=== PATIENT | female | born 1985 | race Caucasian/White ===

== ENCOUNTER → 2017-02-27 | Outpatient (CLI) | payer OTHER ==
--- NOTE | 2017-02-27 08:10 | US ---
EXAMINATION TYPE: US abdomen limited DATE OF EXAM: 02/27/2017 COMPARISON: NONE CLINICAL HISTORY: R10.84 abdominal pain. EXAM MEASUREMENTS: Liver Length: 16.5 cm Gallbladder Wall: 0.3 cm CBD: 0.2 cm Right Kidney: 10.6 x 4.6 x 5.9 cm Pancreas: wnl as seen Liver: homogeneous Gallbladder: No stones seen, gb wall prominent Evidence for sonographic Ho's sign: no CBD: wnl Right Kidney: No hydronephrosis or masses seen Visualized portions of the pancreas are unremarkable. The liver is normal in size without biliary dilatation. The gallbladder is unremarkable. The gallbladder wall measures 3 mm. The distal common hepatic duct m easures 2 mm. There is no sonographic Ho's sign. Right kidney is normal. IMPRESSION: NORMAL RIGHT UPPER QUADRANT ULTRASOUND.
--- NOTE | 2017-02-27 10:10 | NM ---
EXAMINATION TYPE: NM hepatobiliary w EF DATE OF EXAM: 02/27/2017 COMPARISON: NONE HISTORY: Abdominal pain TECHNIQUE: After the intravenous administration of 5.5 mCi Tc 99m Mebrofenin hepatobiliary scintigrap hy is performed. Immediate images post injection. FINDINGS: There is satisfactory initial accumulation of tracer by the liver. The gallbladder is visualized wit hin 8 minutes. The small bowel activity is noted within 18 minutes. At one hour 8 ounces of oral en sure plus is given to mimic CCK and gallbladder ejection fraction is calculated at 43 %, in the joe l range. Therefore there is no scintigraphic evidence of cystic or common bile duct obstruction to s uggest acute cholecystitis or gallbladder dyskinesia. IMPRESSION: NORMAL NUCLEAR MEDICINE HEPATOBILIARY SCAN WITH EJECTION FRACTION CALCULATION.
== END | disposition home or self-care (01) ==
LOC: RADUSMAIN 07:02
PROVIDERS: ATTEND Surgery Plastic and Reconstructive Surgery
DX: R10.84 Generalized abdominal pain (principal)
CPT/HCPCS: 76705; 78226; A9537

== ENCOUNTER → 2017-05-18 | Outpatient (CLI) | payer OTHER ==
--- NOTE | 2017-05-18 14:04 | XR ---
EXAMINATION TYPE: XR thoracic spine complete DATE OF EXAM: 05/18/2017 CLINICAL HISTORY: Fall with mid back pain. TECHNIQUE: Frontal, lateral, and swimmer's view of thoracic spine are obtained. COMPARISON: None. FINDINGS: Thoracic spine show satisfactory alignment without evidence of acute fracture or dislocatio n. Vertebral body heights and disc space heights are preserved. Visualized ribs are unremarkable. Visualized ribs appear intact without displaced fracture. Visualized portions of the lungs are unrema rkable. Heart appears slightly prominent in size, which may be related to technique IMPRESSION: No acute fracture or dislocation is seen in the thoracic spine.
--- NOTE | 2017-05-18 14:05 | XR ---
EXAMINATION TYPE: XR lumbar spine 2 or 3V DATE OF EXAM: 05/18/2017 CLINICAL HISTORY: Fall and mid back pain. TECHNIQUE: Frontal and lateral images of the lumbar spine are obtained. COMPARISON: None FINDINGS: There are 5 lumbar type vertebral bodies identified. The lumbar spine shows satisfactory alignment without evidence of acute fracture or dislocation. Vertebral body heights and disk space he ights are within normal limits. No significant degenerative changes seen throughout the lumbar spine. The oblique images appear within normal limits. The overlying soft tissue appears unremarkable. IMPRESSION: No acute fracture or dislocation is seen in the lumbar spine. No significant degenerativ e change.
== END | disposition home or self-care (01) ==
LOC: RADXRMAIN 12:00
PROVIDERS: ATTEND Internal Medicine
DX: M54.5 Low back pain (principal); M54.9 Dorsalgia, unspecified
CPT/HCPCS: 72072; 72100

== ENCOUNTER → 2017-07-24 | Outpatient (CLI) | payer OTHER ==
[2017-07-24 14:55] VITALS: BP 119/66; PULSE 86; RESP 16; TEMP 98; BMI 31.3
[2017-07-24 17:26] LABS: HCT 43.4 % (34.0-46.0); MCH 28.6 pg (25.0-35.0); MCHC 32.2 g/dL (31.0-37.0); MCV 88.7 fL (80.0-100.0); Mean Platelet Volume 8.2; Platelet Count 331 k/uL (150-450); RBC 4.89 m/uL (3.80-5.40); RDW 13.8 % (11.5-15.5); WBC 10.2 k/uL (3.8-10.6)
[2017-07-24 17:56] LABS: ALT 40 U/L (9-52); AST 21 U/L (14-36); Albumin 4.4 g/dL (3.5-5.0); Alkaline Phosphatase 65 U/L (38-126); Anion Gap 11 mmol/L; Blood Urea Nitrogen 14 mg/dL (7-17); Calcium 9.8 mg/dL (8.4-10.2); Carbon Dioxide 24 mmol/L (22-30); Chloride 107 mmol/L (98-107); Cholesterol 135 mg/dL (<200); Glucose 90 mg/dL (74-99); HDL Cholesterol 38 mg/dL (40-60); LDL Cholesterol,Calculated 78 mg/dL (0-99); Potassium 4.5 mmol/L (3.5-5.1); Sodium 142 mmol/L (137-145); Total Bilirubin 0.2 mg/dL (0.2-1.3); Total Protein 6.8 g/dL (6.3-8.2); Triglycerides 95 mg/dL (<150)
[2017-07-25 00:53] LABS: Iron Saturation 11.24 (12.00-45.00)
[2017-07-25 01:43] LABS: Folate, Serum 12.8 ng/mL
[2017-07-25 02:00] LABS: Hemoglobin A1C 5.2 % (4.0-6.0)
[2017-07-27 15:59] LABS: Anabasine Urine <2.0 ng/mL (<2.0)
--- NOTE | 2017-09-16 16:34 | P.HPBAR ---
Bariatric H&P - History & Physicial H&P Date: 07/24/17 History & Physicial: Visit/CC: initial visit Patient initial contact: Initial weight: 85.417 kg Initial weight in pounds: 188.00 Height: 5 ft 5 in Initial BMI: 31.3 Last weight: Current weight: 85.417 kg Current weight in pounds: 188.00 Current BMI: 31.3 Hayden body weight (based on NIH guidelines): 56.699 kg Excess body weight loss: 0.0% The patient is a 32 year-old F who presents for Bariatric Assessment. DATE OF SERVICE: 07/24/2017 REASON FOR CONSULTATION: Initial bariatric evaluation. HISTORY OF PRESENT ILLNESS: The patient is a 32-year-old female who presents with long-standing obesity. Her highest weight is 225 pounds. She comes in today weighing 188 pounds. Her body mass index is down from 37.5 to 31.3. Her personal goal is to get down to 150 pounds. She has done Adipex including working at the gym for weight loss. She has a family history of obesity as her parents and grandparents are overweight. She has a family history of diabetes in her grandmother and mother as well as hypertension. She reports lower back pain including bilateral knee pain. She was reports swelling of the bilateral feet. She denies food ALLERGIES. No presonal history of Crohn's or ulcerative colitis. She has gastroesophageal reflux disease. No reports of stomach or esophageal cancer. No reports of blood clots in her family. She has strong family history of gallbladder disorder in her sister including mother. Separately she does report right upper quadrant including right lower quadrant abdominal pain. She has fatty food intolerance. She has a family history of Crohn's disease including ulcerative colitis. She also reports diarrhea. Separately, she complains of panniculitis of her abdominal apron. She's evaluating for the sleeve gastrectomy. At her height of 5 foot 5 inches her ideal body weight is 149 pounds. She is 40 pounds overweight. She has maintained 37 pound weight loss on her own. PAST MEDICAL HISTORY: 1. Obesity. 2. Body mass index of 38.4 down to 31.3. 3. Osteoarthritis of the knees. 4. Gastroesophageal reflux disease. PAST SURGICAL HISTORY: 1. Tonsillectomy. HOME MEDICATIONS: 1. Motrin. ALLERGIES: Denies. SOCIAL HISTORY: Active tobacco use. . FAMILY HISTORY: Has family history of ulcerative colitis disease or Crohn's disease. Family history of morbid obesity. No lupus in family. No reports of stomach or esophageal cancer. Family history of diabetes and hypertension. REVIEW OF ORGAN SYSTEMS: CONSTITUTIONAL: At her height of 5 foot 5 inches her ideal body weight is 149 pounds. She is 40 pounds overweight. She has maintained 37 pound weight loss on her own. Her highest weight is 225 pounds. She comes in today weighing 188 pounds. Her body mass index is down from 37.5 to 31.3. HEENT: Denies any active troubles with vision or hearing. No troubles with swallowing. ENDOCRINE: No diabetes. No hypothyroidism. CARDIOVASCULAR: No reports of palpitations or heart attacks or chest pain. RESPIRATORY: Has daytime somnolence. No asthma. GI: Denies any bright red blood per rectum. Does have gastroesophageal reflux disease as described above. Has diarrhea. MUSCULOSKELETAL: Has lower back pain and joint pain. Has osteoarthritis of the hips and knees. NEURO: No headaches. No seizure disorders. PSYCH: No depression or suicidal ideation. RHEUMATOLOGIC: No lupus. No rheumatoid arthritis. HEMATOLOGIC: Denies any abnormal bleeding or bruising. No personal history of DVTs. SKIN: No rash. No skin cancer. PHYSICAL EXAM: VITAL SIGNS: Height 5 foot 5 inches, weight 188 pounds. BMI 31.3 Vital Signs Temp 98 F 07/24/17 14:52 Pulse 86 07/24/17 14:52 Resp 16 07/24/17 14:52 BP 119/66 07/24/17 14:52 Pulse Ox GENERAL: Well-developed in no acute distress. HEENT: No scleral icterus. Extraocular movements grossly intact. Hears conversational speech. No nasal drainage. NECK: Supple without lymphadenopathy. CHEST: Nonlabored respirations with equal bilateral excursions. CARDIOVASCULAR: Regular rate and regular rhythm. Distal 2+ pulses. ABDOMEN: Obese, soft, nontender, nondistended. MUSCULOSKELETAL: No clubbing, cyanosis. Gross strength 5/5 distal lower extremities. No pre-tibial pitting edema. NEURO: No focal or lateralizing signs. Cranial nerves 2 through 12 grossly within normal limits. PSYCH: Appropriate affect. Alert and oriented to person, place and time. SKIN: Good skin turgor. Well perfused. ASSESSMENT: 1. Obesity due to excess calories. 2. Body mass index of 37.5 to 31.3. 3. Osteoarthritis of the knees. 4. Gastroesophageal reflux disease. 5. Gallbladder disorder. 6. Family history of gallbladder disorder. 7. Family history of obesity. 8. Family history of lupus and Crohn's disease. 9. Active tobacco abuse PLAN: 1. At present, the patient's body mass index is less than 35 without any moderate comorbidities. As a result, recommend dietitian evaluation for weight loss. 2. Surgical options including a band, gastric bypass, sleeve gastrectomy were described in detail including criteria for weight loss surgery when BMI is over 35 with comorbidities or body mass index over 40. Alternatives such as gastric balloon including duodenal switch were described. 3. The [place] bariatric surgical collaborative data and outcomes calculator were described with surgical options. 4. Dietary surveillance and counseling was reviewed, I have asked increased protein intake to at least 60 grams daily. 5. Recommend food journal. 6. Recommend bariatric metabolic panel for evaluation for macro including micro -nutrient deficiency. 7. For history of gallbladder disorder, recommend laparoscopic cholecystectomy. Thank you for this consultation. Laboratory Last Values WBC 10.2 k/uL (3.8-10.6) 07/24/17 16:20 RBC 4.89 m/uL (3.80-5.40) 07/24/17 16:20 Hgb 14.0 gm/dL (11.4-16.0) 07/24/17 16:20 Hct 43.4 % (34.0-46.0) 07/24/17 16:20 MCV 88.7 fL (80.0-100.0) 07/24/17 16:20 MCH 28.6 pg (25.0-35.0) 07/24/17 16:20 MCHC 32.2 g/dL (31.0-37.0) 07/24/17 16:20 RDW 13.8 % (11.5-15.5) 07/24/17 16:20 Plt Count 331 k/uL (150-450) 07/24/17 16:20 Sodium 142 mmol/L (137-145) 07/24/17 16:20 Potassium 4.5 mmol/L (3.5-5.1) 07/24/17 16:20 Chloride 107 mmol/L (98-107) 07/24/17 16:20 Carbon Dioxide 24 mmol/L (22-30) 07/24/17 16:20 Anion Gap 11 mmol/L 07/24/17 16:20 BUN 14 mg/dL (7-17) 07/24/17 16:20 Creatinine 0.70 mg/dL (0.52-1.04) 07/24/17 16:20 Est GFR (MDRD) Af Amer >60 (>60 ml/min/1.73 sqM) 07/24/17 16:20 Est GFR (MDRD) Non-Af >60 (>60 ml/min/1.73 sqM) 07/24/17 16:20 Glucose 90 mg/dL (74-99) 07/24/17 16:[address] Glu mg/dL 103 07/24/17 16:20 Hemoglobin A1c 5.2 % (4.0-6.0) 07/24/17 16:20 Calcium 9.8 mg/dL (8.4-10.2) 07/24/17 16:20 Iron 39 ug/dL (50-170) L 07/24/17 16:20 TIBC 347 ug/dL (228-460) 07/24/17 16:20 Iron Saturation 11.24 (12.00-45.00) L 07/24/17 16:20 Ferritin 30.8 ng/mL (10.0-291.0) 07/24/17 16:20 Total Bilirubin 0.2 mg/dL (0.2-1.3) 07/24/17 16:20 AST 21 U/L (14-36) 07/24/17 16:20 ALT 40 U/L (9-52) 07/24/17 16:20 Alkaline Phosphatase 65 U/L (38-126) 07/24/17 16:20 Total Protein 6.8 g/dL (6.3-8.2) 07/24/17 16:20 Albumin 4.4 g/dL (3.5-5.0) 07/24/17 16:20 Triglycerides 95 mg/dL (<150) 07/24/17 16:20 Cholesterol 135 mg/dL (<200) 07/24/17 16:20 LDL Cholesterol, Calc 78 mg/dL (0-99) 07/24/17 16:20 HDL Cholesterol 38 mg/dL (40-60) L 07/24/17 16:20 Vitamin B1 46 ug/L (38-122) 07/24/17 16:20 Vitamin B12 537.0 pg/mL (200.0-944.0) 07/24/17 16:20 Vitamin D 25-Hydroxy 29.0 ng/mL (30.0-100.0) L 07/24/17 16:20 Folate 12.8 ng/mL 07/24/17 16:20 TSH 0.904 mIU/L (0.465-4.680) 07/24/17 16:20 Urine Cotinine 1439.2 ng/mL (<5.0) H 07/24/17 16:20 Urine Nicotine 7.2 ng/mL (<2.0) H 07/24/17 16:20 Urine Anabasine <2.0 ng/mL (<2.0) 07/24/17 16:20 EKG EKG PERFORMED 07/24/17 16:20 Recommend multivitamin daily. Recommend iron supplement. Recommended tobacco cessation. Past Medical History Past Medical History: No Reported History History of Any Multi-Drug Resistant Organisms: None Reported Past Surgical History: No Surgical Hx Reported, Tonsillectomy Past Anesthesia/Blood Transfusion Reactions: No Reported Reaction Smoking Status: Current every day smoker Surgical - Exam Vital Signs Temp Pulse Resp BP 98 F 86 16 119/66 07/24/17 14:52 07/24/17 14:52 07/24/17 14:52 07/24/17 14:52 Results - Labs 07/24/17 16:20 07/24/17 16:20 Bariatric Checklist Checklist: Plan: Checklist: EGD: 1. Hiatal hernia: 2. H. Pylori: HgbA1c: Vitamin D: Smoking: Current every day smoker Primary care physician referral: Psychiatry clearance: Cardiology clearance: Sleep study: Diet journal: VTE risk score: VTE risk level: Rehab needs at discharge:
== END | disposition home or self-care (01) ==
LOC: BARWHC3 13:46
PROVIDERS: ATTEND Surgery Plastic and Reconstructive Surgery
DX: Z48.815 Encounter for surgical aftercare following surgery on the digestive system (principal); E66.9 Obesity, unspecified; M17.0 Bilateral primary osteoarthritis of knee; K21.9 Gastro-esophageal reflux disease without esophagitis; K82.9 Disease of gallbladder, unspecified; F17.200 Nicotine dependence, unspecified, uncomplicated; E88.81 Metabolic syndrome and other insulin resistance; D50.8 Other iron deficiency anemias; E44.0 Moderate protein-calorie malnutrition; E55.9 Vitamin D deficiency, unspecified; I11.9 Hypertensive heart disease without heart failure; G47.30 Sleep apnea, unspecified; Z68.31 Body mass index [BMI] 31.0-31.9, adult; Z79.1 Long term (current) use of non-steroidal anti-inflammatories (NSAID); Z90.89 Acquired absence of other organs
CPT/HCPCS: 84425; 80061; 80053; 82607; 82728; 82746; 83540; 83550; 84443; 85027; 82306; 83036; 93005; G0480; G0463; 80323; 99211

== ENCOUNTER 2017-08-30 21:13 | Emergency (ER) | payer OTHER ==
[2017-08-30 21:22] VITALS: RESP 20
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
--- NOTE | 2017-08-30 23:01 | XR ---
EXAMINATION TYPE: XR Hip Complete RT DATE OF EXAM: 08/30/2017 COMPARISON: NONE HISTORY: Hip pain TECHNIQUE: 2 views FINDINGS: I see no fracture nor dislocation. Proximal femur and hip joint appear normal. There is no evidence of a focal bony destructive process. Right sacroiliac joint appears normal. IMPRESSION: Normal right hip exam.
--- NOTE | 2017-08-30 23:30 | CT ---
EXAMINATION TYPE: CT brain wo con DATE OF EXAM: 08/30/2017 COMPARISON: 05/15/2016 HISTORY: head injury CT DLP: 994.30 mGycm. Automated Exposure Control for Dose Reduction was Utilized. TECHNIQUE: CT scan of the head is performed without contrast. FINDINGS: Ventricles and sulci appear normal. There is no mass effect nor midline shift. There is n o sign of intracranial hemorrhage. The calvarium is intact. CONCLUSION: Normal CT scan of the brain. No change. No sign of traumatic injury.
[2017-08-30 23:42] VITALS: BP 128/79; PULSE 78; TEMP 98.5
== END 2017-08-30 23:41 | disposition home or self-care (01) ==
LOC: EC 21:13
DX: S70.01XA Contusion of right hip, initial encounter (principal); S06.9X9A Unspecified intracranial injury with loss of consciousness of unspecified duration, initial encounter; F17.200 Nicotine dependence, unspecified, uncomplicated; V86.59XA Driver of other special all-terrain or other off-road motor vehicle injured in nontraffic accident, initial encounter
CPT/HCPCS: 70450; 73502; 99284

== ENCOUNTER 2019-05-14 09:59 | Emergency (ER) | payer OTHER ==
[2019-05-14 10:06] VITALS: BP 119/79; PULSE 86; RESP 20; TEMP 98.1
--- NOTE | 2019-05-14 10:43 | CT ---
EXAMINATION TYPE: CT brain wo con DATE OF EXAM: 05/14/2019 COMPARISON: 08/30/2017 HISTORY: Headache CT DLP: 1150.[address] of the brain was performed. The ventricles, basal cisterns and sulci overlying the cerebral convexities demonstrate a normal appe arance. There is no evidence for intracranial hemorrhage or sulcal effacement. No mass effects are seen. Osseous calvarium is intact. If symptoms persist consider MRI as clinically warranted. IMPRESSION: 1. No acute intracranial process is seen at this time.
[2019-05-14] MEDS ORDERED: KETOROLAC 30 MG/ML 1 ML VIAL IVP STA (10:49)
[2019-05-14] MEDS ORDERED: diphenhydrAMINE 50 MG/ML 1 ML VIAL IVP STA (10:49)
[2019-05-14] MEDS ORDERED: METOCLOPRAMIDE 5 MG/ML 2 ML VIAL IVP STA (10:49)
[2019-05-14] MEDS ORDERED: SODIUM CHLORIDE 0.9% 1,000 ML IV STA (10:49)
--- NOTE | 2019-05-14 11:04 | ED ---
General Adult HPI - General Chief complaint: Headache Stated complaint: Headache Time Seen by Provider: 05/14/19 10:07 Source: patient, RN notes reviewed, old records reviewed Mode of arrival: ambulatory Limitations: no limitations - History of Present Illness Initial comments: 34-year-old female patient past history significant for tubal ligation, cholecystectomy presents ED chief complaint of worsening migraine headaches approximately one year. Patient reports that over this time. She has had headaches which are behind her left, they come and go. Patient reports insidious onset of headache, reports nausea without emesis. Patient reports that most current headache has been waxing and waning/Saturday. Patient denies thunderclap onset, denies worst headache of life, denies loss of consciousness, states that she cannot be . Systemic: Pt denies fatigue, fever/chills, rash. Pt denies weakness, night sweats, weight loss. Neuro: Pt denies visual disturbances, syncope or pre-syncope. HEENT: Pt denies ocular discharge or irritation, otalgia, rhinorrhea, pharyngitis or notable lymphadenopathy. Cardiopulmonary: Pt denies chest pain, SOB, heart palpitations, dyspnea on exertion. Abdominal/GI: Pt denies abdominal pain, n/v/d. : Pt denies dysuria, burning w/ urination, frequency/urgency. Denies new onset urinary or bowel incontinence. MSK: Pt denies myalgia, loss of strength or function in extremities. Neuro: Pt denies new onset weakness, paresthesias. - Related Data Home Medications Medication Instructions Recorded Confirmed [id number] 1 tab PO Q4HR PRN 05/14/19 05/14/19 [Excedrin] Allergies Allergy/AdvReac Type Severity Reaction Status Date / Time No Known Allergies Allergy Verified 05/14/19 10:11 Review of Systems ROS Statement: Those systems with pertinent positive or pertinent negative responses have been documented in the HPI. ROS Other: All systems not noted in ROS Statement are negative. Past Medical History Past Medical History: No Reported History Additional Past Medical History / Comment(s): GALLBLADDER DISORDER History of Any Multi-Drug Resistant Organisms: None Reported Past Surgical History: Adenoidectomy, Cholecystectomy, Tonsillectomy, Tubal Ligation Additional Past Surgical History / Comment(s): D & C Past Anesthesia/Blood Transfusion Reactions: No Reported Reaction Past Psychological History: No Psychological Hx Reported Smoking Status: Current every day smoker Past Alcohol Use History: None Reported Past Drug Use History: None Reported - Past Family History Mother Family Medical History: No Reported History General Exam - General Exam Comments Initial Comments: Constitutional: NAD, AOX3, Pt has pleasant affect. HEENT: NC/AT, trachea midline, neck supple, no lymphadenopathy. Posterior phary nx non erythematous, without exudates. External ears appear normal, without discharge. Mucous membranes moist. Eyes PERRLA, EOM intact. There is no scleral icterus. No pallor noted. Cardiopulmonary: RRR, no murmurs, rubs or gallops, no JVD noted. Lungs CTAB in anterior and posterior mauricio. No peripheral edema. Abdominal exam: Abdomen soft and non-distended. Abdomen non-tender to palpation in all 4 quadrants. Bowel sounds active in LLQ. No hepatosplenomegaly. No ecchymosis Neuro: CN II-XII intact. No nuchal rigidity. No raccon eyes, no robles sign, no hemotympanum. No cervical spinal tenderness. MSK: No posterior calf tenderness bilaterally, homans sign negative bilaterally. Posterior tibialis and radial pulse +2 bilaterally. Sensation intact in upper and lower extremities. Full active ROM in upper and lower extremities, 5/5 stregnth. Limitations: no limitations Course Vital Signs 05/14/19 10:03 Temperature 98.1 F Pulse Rate 86 Respiratory 20 Rate Blood Pressure 119/79 O2 Sat by Pulse 99 Oximetry Medical Decision Making - Medical Decision Making 34-year-old female patient past history significant for tubal ligation, cholecystectomy presents ED chief complaint of worsening migraine headaches approximately one year. Patient reports that over this time. She has had headaches which are behind her left, they come and go. Patient reports insidious onset of headache, reports nausea without emesis. Patient reports that most current headache has been waxing and waning/Saturday. Patient denies thunderclap onset, denies worst headache of life, denies loss of consciousness, states that she cannot be . Pt VSS, stable afebrile. Physical exam displayed: CN II-XII intact. No nuchal rigidity. No raccon eyes, no robles sign, no hemotympanum. No cervical spinal tenderness. Chart review displayed negative CT brain didn't thousand and August 2017. Explained to patient risks of radiation to brain, patient was understanding. Patient reported that she would like to have another CT done as these headaches have been worsening and progressive. CT brain presents with acute pathology. Patient administered headache cocktail, improved after pharmacologic intervention. Patient will be discharged with neurology follow-up. Case discussed with Dr. Mendoza. Disposition Clinical Impression: Migraine headache Disposition: HOME SELF-CARE Condition: Stable Instructions (If sedation given, give patient instructions): Acute Headache (ED) Additional Instructions: Patient to adhere to previously discussed treatment plan and will take medication(s) as directed. Patient to follow up with PCP in 1-2 days. Patient to return to ED if symptoms do not improve. Follow-up with neurologist as recommended by PCP. return to ER if condition worsens. Is patient prescribed a controlled substance at d/c from ED?: No Referrals: Johnson Oquendo MD [Primary Care Provider] - 1-2 days
== END 2019-05-14 11:44 | disposition home or self-care (01) ==
LOC: EC 09:59
DX: G43.909 Migraine, unspecified, not intractable, without status migrainosus (principal); F17.200 Nicotine dependence, unspecified, uncomplicated; Z90.49 Acquired absence of other specified parts of digestive tract; Z98.51 Tubal ligation status
CPT/HCPCS: 70450; 99284; 96374; 96375 ×2; 96361; J1200; J2765; J1885

== ENCOUNTER 2020-07-01 10:58 | Emergency (ER) | payer OTHER ==
[2020-07-01] MEDS ORDERED: KETOROLAC 15 MG/ML 1 ML VIAL IVP STA (11:50)
--- NOTE | 2020-07-01 12:08 | ED ---
Abdominal Pain HPI - General Chief Complaint: Abdominal Pain Stated Complaint: post op/abd pain & bloating Time Seen by Provider: 07/01/20 11:04 Source: patient Mode of arrival: ambulatory Limitations: no limitations - History of Present Illness Initial Comments: Patient is a 35-year-old female presenting to the emergency Department with complaints of abdominal pain and bloating that has been increasing over the past month. Patient is 11 weeks postop from a tummy tuck and liposuction procedure performed at [facility] in [facility]. Patient states she has had complications ever since the procedure. She states shortly after her procedure she developed a wound infection, finished a course of antibiotics, a few weeks later the right side of her wound came apart revealing internal sutures. Patient states she finally healed from that and in the last week a spot on the left side of her incision has started opening as well. She states throughout this healing process she has felt very swollen and bloated. Patient states the last week she feels like the bloating is significantly worse than it has been. She is also having continued pain, is having a hard time working secondary to the pain and continues to have a hard time moving around. She states she still wears a compression clothing over it. She has not taken any recent antibiotics, she is currently on no medications. She's been taking ibuprofen for discomfort which sometimes helps, other times not. She denies any fever, but has had nightly chills. She denies any nausea, vomiting, diarrhea, urinary complaints. She states she is going through bouts of constipation because her appetite has been so low. Eyes being secondary to tubal ligation. She states her surgeon has basically given up on her stating it'll just take some more time to heal. She has no further complaints at this time. - Related Data Home Medications Medication Instructions Recorded Confirmed No Known Home Medications 07/01/20 07/01/20 Allergies Allergy/AdvReac Type Severity Reaction Status Date / Time No Known Allergies Allergy Verified 07/01/20 11:52 Review of Systems ROS Statement: Those systems with pertinent positive or pertinent negative responses have been documented in the HPI. ROS Other: All systems not noted in ROS Statement are negative. Past Medical History Past Medical History: No Reported History Additional Past Medical History / Comment(s): GALLBLADDER DISORDER History of Any Multi-Drug Resistant Organisms: None Reported Past Surgical History: Adenoidectomy, Cholecystectomy, Tonsillectomy, Tubal Ligation Additional Past Surgical History / Comment(s): D & C, Mike yuan Past Anesthesia/Blood Transfusion Reactions: No Reported Reaction Past Psychological History: No Psychological Hx Reported Smoking Status: Never smoker Past Alcohol Use History: None Reported Past Drug Use History: None Reported - Past Family History Mother Family Medical History: No Reported History General Exam - General Exam Comments Initial Comments: GENERAL: Patient is well-developed and well-nourished. Patient is nontoxic and in no acute distress. HEAD: Atraumatic, normocephalic. EYES: Pupils equal round and reactive to light, extraocular movements intact, sclera anicteric, conjunctiva are normal. Eyelids were unremarkable. ENT: TMs normal, nares patent, oropharynx clear without exudates. Moist mucous membranes. NECK: Normal range of motion, supple without lymphadenopathy or JVD. LUNGS: Unlabored respirations. Breath sounds clear to auscultation bilaterally and equal. No wheezes rales or rhonchi. HEART: Regular rate and rhythm without murmurs, rubs or gallops. ABDOMEN: Patient has a lower abdomen incision running from hip to hip that has been healing well, there is one open area near the left lower quadrant that is draining bloody fluid. Patient does seem distended, hard in the right upper quadrant, rest of abdomen feels softer. Patient is tender to palpation mostly i n the right upper quadrant and right side of the abdomen but does have generalized tenderness in the entire abdomen. Normoactive bowel sounds. No masses appreciated. : Deferred MUSCULOSKELETAL: Normal extremities with adequate strength and normal range of motion, no pitting or edema. No clubbing or cyanosis. NEUROLOGICAL: Patient is alert and oriented x 3. Motor and sensory are also intact. Cranial nerves II through XII grossly intact. Symmetrical smile. Normal speech, normal gait. PSYCH: Normal mood, normal affect. SKIN: Warm, Dry, normal turgor, no rashes. Limitations: no limitations Course Vital Signs 07/01/20 07/01/20 11:00 13:03 Temperature 98 F 98.0 F Pulse Rate 83 67 Respiratory 20 18 Rate Blood Pressure 119/77 124/76 O2 Sat by Pulse 99 99 Oximetry Medical Decision Making - Medical Decision Making Patient is a 35-year-old female here for abdominal pain, distention does been increasing over the past few weeks. She is currently 11 weeks postop from a tummy tack and liposuction procedure done in [facility]. She has had wound complications ever since the procedure. Her vital signs are stable. She does have increased pain in the right upper quadrant and right side of her abdomen but does have generalized abdominal tenderness everywhere. Patient's labs are unremarkable, urine is normal. Did do a CT of the abdomen and pelvis which only shows continuous and subcutaneous inflammatory straightening of the anterior abdomen consistent with history of recent tummy tuck, no evidence of focal fluid collection or abscess. No other acute findings. I discussed these findings with the patient. Patient should continue with compression of the abdomen, gentle massage. I did recommend following up with a general surgeon. She has had her gallbladder removed with Dr. Patrick, I will give her a referral to her. She is stable for discharge at this time. Return parameters were dis cussed with the patient she verbalized understanding. Case discussed with Dr. Perales. - Lab Data Result diagrams: 07/01/20 12:16 07/01/20 12:16 Lab Results 07/01/20 07/01/20 07/01/20 Range/Units 12:16 12:16 12:16 WBC 7.9 (3.8-10.6) k/uL RBC 4.45 (3.80-5.40) m/uL Hgb 13.3 (11.4-16.0) gm/dL Hct 39.9 (34.0-46.0) % MCV 89.6 (80.0-100.0) fL MCH 29.9 (25.0-35.0) pg MCHC 33.4 (31.0-37.0) g/dL RDW 12.6 (11.5-15.5) % Plt Count 316 (150-450) k/uL Neutrophils % 62 % Lymphocytes % 29 % Monocytes % 4 % Eosinophils % 2 % Basophils % 1 % Neutrophils # 4.9 (1.3-7.7) k/uL Lymphocytes # 2.3 (1.0-4.8) k/uL Monocytes # 0.4 (0-1.0) k/uL Eosinophils # 0.1 (0-0.7) k/uL Basophils # 0.1 (0-0.2) k/uL Sodium 138 (137-145) mmol/L Potassium 4.2 (3.5-5.1) mmol/L Chloride 105 (98-107) mmol/L Carbon Dioxide 27 (22-30) mmol/L Anion Gap 6 mmol/L BUN 19 H (7-17) mg/dL Creatinine 0.66 (0.52-1.04) mg/dL Est GFR (CKD-EPI)AfAm >90 (>60 ml/min/1.73 sqM) Est GFR (CKD-EPI)NonAf >90 (>60 ml/min/1.73 sqM) Glucose 97 (74-99) mg/dL Plasma Lactic Acid Cristino (0.7-2.0) mmol/L Calcium 9.0 (8.4-10.2) mg/dL Total Bilirubin 0.5 (0.2-1.3) mg/dL AST 21 (14-36) U/L ALT 15 (4-34) U/L Alkaline Phosphatase 61 (38-126) U/L Total Protein 6.6 (6.3-8.2) g/dL Albumin 4.0 (3.5-5.0) g/dL Amylase 47 (30-110) U/L Lipase 57 (23-300) U/L Urine Color Yellow Urine Appearance Cloudy H (Clear) Urine pH 6.5 (5.0-8.0) Ur Specific [place] 1.021 (1.001-1.035) Urine Protein Negative (Negative) Urine Glucose (UA) Negative (Negative) Urine Ketones Negative (Negative) Urine Blood Negative (Negative) Urine Nitrite Negative (Negative) Urine Bilirubin Negative (Negative) Urine Urobilinogen <2.0 (<2.0) mg/dL Ur Leukocyte Esterase Negative (Negative) Urine RBC 4 (0-5) /hpf Urine WBC 2 (0-5) /hpf Ur Squamous Epith Cells 6 H (0-4) /hpf Urine Mucus Rare H (None) /hpf 30/20 Range/Units 12:16 WBC (3.8-10.6) k/uL RBC (3.80-5.40) m/uL Hgb (11.4-16.0) gm/dL Hct (34.0-46.0) % MCV (80.0-100.0) fL MCH (25.0-35.0) pg MCHC (31.0-37.0) g/dL RDW (11.5-15.5) % Plt Count (150-450) k/uL Neutrophils % % Lymphocytes % % Monocytes % % Eosinophils % % Basophils % % Neutrophils # (1.3-7.7) k/uL Lymphocytes # (1.0-4.8) k/uL Monocytes # (0-1.0) k/uL Eosinophils # (0-0.7) k/uL Basophils # (0-0.2) k/uL Sodium (137-145) mmol/L Potassium (3.5-5.1) mmol/L Chloride (98-107) mmol/L Carbon Dioxide (22-30) mmol/L Anion Gap mmol/L BUN (7-17) mg/dL Creatinine (0.52-1.04) mg/dL Est GFR (CKD-EPI)AfAm (>60 ml/min/1.73 sqM) Est GFR (CKD-EPI)NonAf (>60 ml/min/1.73 sqM) Glucose (74-99) mg/dL Plasma Lactic Acid Cristino 0.9 (0.7-2.0) mmol/L Calcium (8.4-10.2) mg/dL Total Bilirubin (0.2-1.3) mg/dL AST (14-36) U/L ALT (4-34) U/L Alkaline Phosphatase (38-126) U/L Total Protein (6.3-8.2) g/dL Albumin (3.5-5.0) g/dL Amylase (30-110) U/L Lipase (23-300) U/L Urine Color Urine Appearance (Clear) Urine pH (5.0-8.0) Ur Specific [place] (1.001-1.035) Urine Protein (Negative) Urine Glucose (UA) (Negative) Urine Ketones (Negative) Urine Blood (Negative) Urine Nitrite (Negative) Urine Bilirubin (Negative) Urine Urobilinogen (<2.0) mg/dL Ur Leukocyte Esterase (Negative) Urine RBC (0-5) /hpf Urine WBC (0-5) /hpf Ur Squamous Epith Cells (0-4) /hpf Urine Mucus (None) /hpf Disposition Clinical Impression: Abdominal pain Disposition: HOME SELF-CARE Condition: Stable Instructions (If sedation given, give patient instructions): Abdominal Pain (ED) Additional Instructions: Please return to the Emergency Department if symptoms worsen or any other concerns. Follow-up with Gen. surgery as discussed. May continue with ibuprofen for discomfort, gentle massage, compression for the swelling. Is patient prescribed a controlled substance at d/c from ED?: No Referrals: Johnson Oquendo MD [Primary Care Provider] - 1-2 days Geeta Patrick MD [STAFF PHYSICIAN] - 1-2 days
[2020-07-01 12:29] LABS: Basophils # (A) 0.1 k/uL (0-0.2); Basophils % (A) 1 %; Eosinophils # (A) 0.1 k/uL (0-0.7); Eosinophils % (A) 2 %; HCT 39.9 % (34.0-46.0); HGB 13.3 gm/dL (11.4-16.0); Lymphocytes # (A) 2.3 k/uL (1.0-4.8); Lymphocytes % (A) 29 %; MCH 29.9 pg (25.0-35.0); MCHC 33.4 g/dL (31.0-37.0); MCV 89.6 fL (80.0-100.0); Mean Platelet Volume 7.4; Monocytes # (A) 0.4 k/uL (0-1.0); Monocytes % (A) 4 %; Neutrophils # (A) 4.9 k/uL (1.3-7.7); Neutrophils % (A) 62 %; Platelet Count 316 k/uL (150-450); RBC 4.45 m/uL (3.80-5.40); RDW 12.6 % (11.5-15.5); WBC 7.9 k/uL (3.8-10.6)
[2020-07-01 12:35] LABS: Appearance,Urine Cloudy (Clear); Bilirubin,Urine Negative (Negative); Blood,Urine Negative (Negative); Color,Urine Yellow; Glucose,Urine (UA) Negative (Negative); Ketones,Urine Negative (Negative); Leukocyte Esterase,Urine Negative (Negative); Mucus,Urine Rare /hpf; Nitrite,Urine Negative (Negative); PH, Urine 6.5 (5.0-8.0); Protein,Urine Negative (Negative); RBC,Urine 4 /hpf (0-5); Specific Gravity,Urine 1.021 (1.001-1.035); Squamous Epithelial Cell,Urine 6 /hpf (0-4); Urobilinogen,Urine <2.0 mg/dL (<2.0); WBC,Urine 2 /hpf (0-5)
[2020-07-01 12:40] LABS: ALT 15 U/L (4-34); AST 21 U/L (14-36); African American GFR (CKD) >90 (>60 ml/min/1.73 sqM); Alkaline Phosphatase 61 U/L (38-126); Amylase 47 U/L (30-110); Anion Gap 6 mmol/L; Blood Urea Nitrogen 19 mg/dL (7-17); Carbon Dioxide 27 mmol/L (22-30); Chloride 105 mmol/L (98-107); Glucose 97 mg/dL (74-99); Non-African American GFR(CKD) >90 (>60 ml/min/1.73 sqM); Potassium 4.2 mmol/L (3.5-5.1); Sodium 138 mmol/L (137-145); Total Bilirubin 0.5 mg/dL (0.2-1.3); Total Protein 6.6 g/dL (6.3-8.2)
--- NOTE | 2020-07-01 13:04 | CT ---
EXAMINATION TYPE: CT abdomen pelvis w con DATE OF EXAM: 07/01/2020 COMPARISON: Limited abdominal ultrasound 02/19/2017 HISTORY: Post Op tummy tuck 11 weeks. Generalized pain with swelling. CT DLP: 1132.9 mGycm Automated exposure control for dose reduction was used. TECHNIQUE: Helical acquisition of images was performed from the lung bases through the pelvis. CONTRAST: Performed without Oral Contrast and with IV Contrast, patient injected with 100 mL of Isovue 300. FINDINGS: LUNG BASES: Normal. LIVER: Too small to characterize hypodense lesion of the left lobe (201:17). BILIARY SYSTEM: Status post cholecystectomy. No intrahepatic or extrahepatic biliary ductal dilatatio n. PANCREAS: Normal. SPLEEN: Normal. ADRENALS: Normal. KIDNEYS: Normal. BOWEL: No obstruction or thickening. Normal appendix. PERITONEUM: No pneumoperitoneum. No free fluid. LYMPH NODES: No lymphadenopathy. PELVIS: Normal. VASCULATURE: No abdominal aortic aneurysm. MUSCULOSKELETAL: There is a transverse lower abdominal cutaneous scar, with superficial subcutaneous inflammatory stranding seen throughout the anterior abdomen. There is no evidence of focal fluid col lection, subcutaneous emphysema. IMPRESSION: 1. Cutaneous and subcutaneous inflammatory stranding of the anterior abdomen consistent with history of recent tummy tuck. No evidence of focal fluid collection or abscess. 2. No acute abdominopelvic process.
[2020-07-01 13:31] VITALS: BP 124/76; PULSE 67; RESP 18; TEMP 98
== END 2020-07-01 13:40 | disposition home or self-care (01) ==
LOC: EC 10:58
DX: R10.11 Right upper quadrant pain (principal); R10.817 Generalized abdominal tenderness; R14.0 Abdominal distension (gaseous); L08.9 Local infection of the skin and subcutaneous tissue, unspecified; Z98.51 Tubal ligation status; Z90.49 Acquired absence of other specified parts of digestive tract; Z98.890 Other specified postprocedural states
CPT/HCPCS: 36415; 80053; 82150; 83605; 83690; 85025; 81001; 74177; 99284; 96374; J1885; Q9967

== ENCOUNTER → 2020-07-01 | Outpatient (CLI) | payer OTHER ==
[2020-07-01 11:11] LABS: Basophils % (A) 1 %; Eosinophils # (A) 0.1 k/uL (0-0.7); Eosinophils % (A) 1 %; HCT 41.5 % (34.0-46.0); HGB 13.1 gm/dL (11.4-16.0); Lymphocytes # (A) 2.2 k/uL (1.0-4.8); Lymphocytes % (A) 35 %; MCH 28.6 pg (25.0-35.0); MCHC 31.6 g/dL (31.0-37.0); MCV 90.7 fL (80.0-100.0); Mean Platelet Volume 7.5; Monocytes # (A) 0.2 k/uL (0-1.0); Monocytes % (A) 3 %; Neutrophils # (A) 3.8 k/uL (1.3-7.7); Neutrophils % (A) 59 %; Platelet Count 308 k/uL (150-450); RBC 4.57 m/uL (3.80-5.40); WBC 6.4 k/uL (3.8-10.6)
[2020-07-01 15:12] LABS: % Iron Saturation 23.47 (12.00-45.00); African American GFR (CKD) 131.9 (60.0-200.0); Albumin 4.4 g/dL (3.80-4.90); Albumin/Globulin Ratio 2.32 (1.60-3.17); Anion Gap 7.7 mmol/L (4.00-12.00); BUN/Creat Ratio 27.14 Ratio (12.00-20.00); Calcium 9.1 mg/dL (8.7-10.3); Carbon Dioxide 26.3 mmol/L (21.6-31.8); Globulin 1.9 g/dL (1.6-3.3); Non-African American GFR(CKD) 113.8 (60.0-200.0); Potassium 4.2 mmol/L (3.5-5.5); Total Bilirubin 0.5 mg/dL (0.3-1.2); Total Protein 6.3 g/dL (6.2-8.2)
[2020-07-01 15:22] LABS: Folate, Serum 15.8 ng/mL
== END | disposition home or self-care (01) ==
LOC: LABWHC1 10:32
PROVIDERS: ATTEND Surgery
DX: K90.9 Intestinal malabsorption, unspecified (principal); E56.9 Vitamin deficiency, unspecified
CPT/HCPCS: 36415; 80053; 82306; 82607; 82746; 83540; 83550; 84466; 85025

== ENCOUNTER 2020-10-12 11:06 | Inpatient (IN) | payer OTHER ==
[2020-10-12] MEDS ORDERED: HYDROcodone/APAP 5-325MG 1 EACH TAB PO STA (11:25)
[2020-10-12] MEDS ORDERED: PIPERACILLIN-TAZOBACTAM 3.375 GM in SODIUM CHLORIDE 0.9% 100 ML IVPB STA (11:30)
--- NOTE | 2020-10-12 11:33 | ED ---
Abdominal Pain HPI - General Source: patient Mode of arrival: ambulatory Limitations: no limitations <Tamia Francis - Last Filed: 10/12/20 14:50> <Josephine Gallegos - Last Filed: 10/17/20 22:17> - General Chief Complaint: Abdominal Pain Stated Complaint: post op-possible infection Time Seen by Provider: 10/12/20 11:14 - History of Present Illness Initial Comments: 35-year-old feel presented for chief complaint of lower abdominal pain redness status post a tummy tuck. Patient states she a tummy tuck at [facility] performed by Dr. Bennett. She states that this is her second procedure at there were complications with the first. pt states that since the surgery she has had lower abdominal p ain. she states the for the past nikolay days she has felt a bump and has new redness/warmth to touch just below the surgical incision site. patient denies fevers, chills, general malaise. Patient denies additional complaints. Denies urinary symptoms, upper abdominal pain, chest pain, dyspnea or leg swelling. patient appears well nontoxic on arrival. no distress and afebrile. (Tamia Francis) - Related Data Previous Rx's Medication Instructions Recorded Acetaminophen Tab [Tylenol Tab] 1,000 mg PO Q6HR PRN #30 tablet 10/17/20 Ciprofloxacin HCl [Cipro] 750 mg PO Q12H 10 Days #20 tab 10/17/20 Ibuprofen [Motrin] 600 mg PO Q8HR PRN #30 tab 10/17/20 Allergies Allergy/AdvReac Type Severity Reaction Status Date / Time No Known Allergies Allergy Verified 10/12/20 12:27 Review of Systems ROS Other: All systems not noted in ROS Statement are negative. <Tamia Francis - Last Filed: 10/12/20 14:50> ROS Other: All systems not noted in ROS Statement are negative. <Josephine Gallegos - Last Filed: 10/17/20 22:17> ROS Statement: Those systems with pertinent positive or pertinent negative responses have been documented in the HPI. Past Medical History Past Medical History: No Reported History Additional Past Medical History / Comment(s): GALLBLADDER DISORDER History of Any Multi-Drug Resistant Organisms: None Reported Past Surgical History: Adenoidectomy, Cholecystectomy, Tonsillectomy, Tubal Ligation Additional Past Surgical History / Comment(s): D & C, Mike yuan Past Anesthesia/Blood Transfusion Reactions: No Reported Reaction Past Psychological History: No Psychological Hx Reported Smoking Status: Never smoker Past Alcohol Use History: None Reported Past Drug Use History: None Reported - Past Family History Mother Family Medical History: No Reported History <Tamia Francis - Last Filed: 10/12/20 14:50> General Exam Limitations: no limitations <Tamia Francis - Last Filed: 10/12/20 14:50> - General Exam Comments Initial Comments: General: The patient is awake and alert, in no distress Eye: Pupils are equal, round and reactive to light, extra-ocular movements are intact. No nystagmus. There is normal conjunctiva bilaterally. No signs of icterus. Ears, nose, mouth and throat: There are moist mucous membranes and no oral lesions. Neck: The neck is supple, there is no tenderness or JVD. Cardiovascular: There is a regular rate and rhythm. No murmur, rub or gallop is appreciated. Respiratory: Lungs are clear to auscultation, respirations are non-labored, breath sounds are equal. No wheezes, stridor, rales, or rhonchi. Gastrointestinal: Soft, non-distended, palpable mass just below the surgical incision of the lower abdomen, midline. redness near surgical incision. abdomen without masses or organomegaly noted. There is no rebound or guarding present. Musculoskeletal: Normal ROM, no tenderness. Strength 5/5. Sensation intact. Radial and DP pulses equal bilaterally 2+. Neurological: A&O x 3. CN II-XII intact grossly, There are no obvious motor or sensory deficits. Coordination appears grossly intact. Speech is normal. Skin: Skin is warm and dry and no rashes or lesions are noted. Psychiatric: Cooperative, appropriate mood & affect, normal judgment. (Tamia Francis) Course Vital Signs 10/12/20 10/12/20 11:07 13:05 Temperature 98.2 F Pulse Rate 95 86 Respiratory 16 16 Rate Blood Pressure 132/85 114/67 O2 Sat by Pulse 98 99 Oximetry Medical Decision Making - Lab Data Result diagrams: 10/12/20 11:33 10/12/20 11:33 <Tamia Francis - Last Filed: 10/12/20 14:50> - Lab Data Result diagrams: 10/17/20 05:16 10/17/20 05:16 <Josephine Gallegos - Last Filed: 10/17/20 22:17> - Medical Decision Making leukocytosis no fevers skin examination concerning for cellulitis with possible abscess. CT revealed a large abscess within the adipose tissues. Patient refuses to go to her original surgeon stating she is displeased with the service s so far. Patient placed on IV antibiotics. Admitted to medicine with Gen. surgery consultation. Patient is agreeable to this care plan and admission as is attending Dr. Gallegos (Tamia Francis) I was available for consultation in the emergency department. The history and physical exam were done by the midlevel provider. I was consulted for this patients care. I reviewed the case with the midlevel provider and based on their presentation of the patient, I agree with the assessment, medical decision making and plan of care as documented. Chart was dictated using [employer] dictation software. Attempts were made to correct any dictation errors however some typographical errors may persist. Patient was seen during a national state of emergency due to the Covid-19 pa ndemic. (Josephine Gallegos) - Lab Data Lab Results 10/12/20 10/12/20 10/12/20 Range/Units 11:33 11:33 11:33 WBC 12.4 H (3.8-10.6) k/uL RBC 4.67 (3.80-5.40) m/uL Hgb 13.4 (11.4-16.0) gm/dL Hct 39.6 (34.0-46.0) % MCV 85.0 (80.0-100.0) fL MCH 28.8 (25.0-35.0) pg MCHC 33.9 (31.0-37.0) g/dL RDW 12.8 (11.5-15.5) % Plt Count 316 (150-450) k/uL MPV 7.5 Neutrophils % 70 % Lymphocytes % 23 % Monocytes % 4 % Eosinophils % 1 % Basophils % 0 % Neutrophils # 8.7 H (1.3-7.7) k/uL Lymphocytes # 2.9 (1.0-4.8) k/uL Monocytes # 0.5 (0-1.0) k/uL Eosinophils # 0.2 (0-0.7) k/uL Basophils # 0.1 (0-0.2) k/uL Sodium 138 (137-145) mmol/L Potassium 4.1 (3.5-5.1) mmol/L Chloride 102 (98-107) mmol/L Carbon Dioxide 26 (22-30) mmol/L Anion Gap 10 mmol/L BUN 11 (7-17) mg/dL Creatinine 0.57 (0.52-1.04) mg/dL Est GFR (CKD-EPI)AfAm >90 (>60 ml/min/1.73 sqM) Est GFR (CKD-EPI)NonAf >90 (>60 ml/min/1.73 sqM) Glucose 121 H (74-99) mg/dL Plasma Lactic Acid Cristino 0.9 (0.7-2.0) mmol/L Calcium 9.1 (8.4-10.2) mg/dL Total Bilirubin 0.7 (0.2-1.3) mg/dL AST 27 (14-36) U/L ALT 27 (4-34) U/L Alkaline Phosphatase 72 (38-126) U/L Total Protein 7.3 (6.3-8.2) g/dL Albumin 4.2 (3.5-5.0) g/dL Urine Color Urine Appearance (Clear) Urine pH (5.0-8.0) Ur Specific [place] (1.001-1.035) Urine Protein (Negative) Urine Glucose (UA) (Negative) Urine Ketones (Negative) Urine Blood (Negative) Urine Nitrite (Negative) Urine Bilirubin (Negative) Urine Urobilinogen (<2.0) mg/dL Ur Leukocyte Esterase (Negative) Urine RBC (0-5) /hpf Urine WBC (0-5) /hpf Ur Squamous Epith Cells (0-4) /hpf Urine Bacteria (None) /hpf Urine Mucus (None) /hpf Urine HCG, Qual (Not Detectd) 10/12/20 10/12/20 10/13/20 Range/Units 11:33 11:33 06:19 WBC 7.0 (3.8-10.6) k/uL RBC 3.97 (3.80-5.40) m/uL Hgb 11.7 (11.4-16.0) gm/dL Hct 34.5 (34.0-46.0) % MCV 86.9 (80.0-100.0) fL MCH 29.4 (25.0-35.0) pg MCHC 33.8 (31.0-37.0) g/dL RDW 13.0 (11.5-15.5) % Plt Count 278 (150-450) k/uL MPV 7.6 Neutrophils % 56 % Lymphocytes % 33 % Monocytes % 6 % Eosinophils % 3 % Basophils % 1 % Neutrophils # 4.0 (1.3-7.7) k/uL Lymphocytes # 2.3 (1.0-4.8) k/uL Monocytes # 0.4 (0-1.0) k/uL Eosinophils # 0.2 (0-0.7) k/uL Basophils # 0.0 (0-0.2) k/uL Sodium (137-145) mmol/L Potassium (3.5-5.1) mmol/L Chloride (98-107) mmol/L Carbon Dioxide (22-30) mmol/L Anion Gap mmol/L BUN (7-17) mg/dL Creatinine (0.52-1.04) mg/dL Est GFR (CKD-EPI)AfAm (>60 ml/min/1.73 sqM) Est GFR (CKD-EPI)NonAf (>60 ml/min/1.73 sqM) Glucose (74-99) mg/dL Plasma Lactic Acid Cristino (0.7-2.0) mmol/L Calcium (8.4-10.2) mg/dL Total Bilirubin (0.2-1.3) mg/dL AST (14-36) U/L ALT (4-34) U/L Alkaline Phosphatase (38-126) U/L Total Protein (6.3-8.2) g/dL Albumin (3.5-5.0) g/dL Urine Color Yellow Urine Appearance Cloudy H (Clear) Urine pH 5.5 (5.0-8.0) Ur Specific [place] 1.010 (1.001-1.035) Urine Protein Trace H (Negative) Urine Glucose (UA) Negative (Negative) Urine Ketones Negative (Negative) Urine Blood Large H (Negative) Urine Nitrite Negative (Negative) Urine Bilirubin Negative (Negative) Urine Urobilinogen <2.0 (<2.0) mg/dL Ur Leukocyte Esterase Trace H (Negative) Urine RBC 35 H (0-5) /hpf Urine WBC 5 (0-5) /hpf Ur Squamous Epith Cells 2 (0-4) /hpf Urine Bacteria Rare H (None) /hpf Urine Mucus Rare H (None) /hpf Urine HCG, Qual Not Detected (Not Detectd) 10/13/20 Range/Units 06:19 WBC (3.8-10.6) k/uL RBC (3.80-5.40) m/uL Hgb (11.4-16.0) gm/dL Hct (34.0-46.0) % MCV (80.0-100.0) fL MCH (25.0-35.0) pg MCHC (31.0-37.0) g/dL RDW (11.5-15.5) % Plt Count (150-450) k/uL MPV Neutrophils % % Lymphocytes % % Monocytes % % Eosinophils % % Basophils % % Neutrophils # (1.3-7.7) k/uL Lymphocytes # (1.0-4.8) k/uL Monocytes # (0-1.0) k/uL Eosinophils # (0-0.7) k/uL Basophils # (0-0.2) k/uL Sodium 135 L (137-145) mmol/L Potassium 4.4 (3.5-5.1) mmol/L Chloride 106 (98-107) mmol/L Carbon Dioxide 25 (22-30) mmol/L Anion Gap 4 mmol/L BUN 15 (7-17) mg/dL Creatinine 0.55 (0.52-1.04) mg/dL Est GFR (CKD-EPI)AfAm >90 (>60 ml/min/1.73 sqM) Est GFR (CKD-EPI)NonAf >90 (>60 ml/min/1.73 sqM) Glucose 100 H (74-99) mg/dL Plasma Lactic Acid Cristino (0.7-2.0) mmol/L Calcium 8.1 L (8.4-10.2) mg/dL Total Bilirubin (0.2-1.3) mg/dL AST (14-36) U/L ALT (4-34) U/L Alkaline Phosphatase (38-126) U/L Total Protein (6.3-8.2) g/dL Albumin (3.5-5.0) g/dL Urine Color Urine Appearance (Clear) Urine pH (5.0-8.0) Ur Specific [place] (1.001-1.035) Urine Protein (Negative) Urine Glucose (UA) (Negative) Urine Ketones (Negative) Urine Blood (Negative) Urine Nitrite (Negative) Urine Bilirubin (Negative) Urine Urobilinogen (<2.0) mg/dL Ur Leukocyte Esterase (Negative) Urine RBC (0-5) /hpf Urine WBC (0-5) /hpf Ur Squamous Epith Cells (0-4) /hpf Urine Bacteria (None) /hpf Urine Mucus (None) /hpf Urine HCG, Qual (Not Detectd) Disposition Is patient prescribed a controlled substance at d/c from ED?: No Time of Disposition: 14:01 Decision to Admit Reason: Admit from EC Decision Date: 10/12/20 Decision Time: 14:02 <Tamia Francis - Last Filed: 10/12/20 14:50> <Josephine Gallegos - Last Filed: 10/17/20 22:17> Clinical Impression: Leukocytosis, Abdominal wall abscess, Post-operative infection Disposition: ADMITTED IP TO THIS HOSP Condition: Stable
[2020-10-12 11:47] LABS: Basophils # (A) 0.1 k/uL (0-0.2); Basophils % (A) 0 %; Eosinophils # (A) 0.2 k/uL (0-0.7); Eosinophils % (A) 1 %; HCT 39.6 % (34.0-46.0); HGB 13.4 gm/dL (11.4-16.0); Lymphocytes # (A) 2.9 k/uL (1.0-4.8); Lymphocytes % (A) 23 %; MCH 28.8 pg (25.0-35.0); MCHC 33.9 g/dL (31.0-37.0); Mean Platelet Volume 7.5; Monocytes # (A) 0.5 k/uL (0-1.0); Monocytes % (A) 4 %; Neutrophils # (A) 8.7 k/uL (1.3-7.7); Neutrophils % (A) 70 %; Platelet Count 316 k/uL (150-450); RBC 4.67 m/uL (3.80-5.40); RDW 12.8 % (11.5-15.5); WBC 12.4 k/uL (3.8-10.6)
[2020-10-12 11:56] LABS: Appearance,Urine Cloudy (Clear); Bacteria,Urine Rare /hpf; Bilirubin,Urine Negative (Negative); Blood,Urine Large (Negative); Color,Urine Yellow; Glucose,Urine (UA) Negative (Negative); Ketones,Urine Negative (Negative); Leukocyte Esterase,Urine Trace (Negative); Mucus,Urine Rare /hpf; Nitrite,Urine Negative (Negative); PH, Urine 5.5 (5.0-8.0); Protein,Urine Trace (Negative); RBC,Urine 35 /hpf (0-5); Squamous Epithelial Cell,Urine 2 /hpf (0-4); Urobilinogen,Urine <2.0 mg/dL (<2.0); WBC,Urine 5 /hpf (0-5)
[2020-10-12 12:57] LABS: ALT 27 U/L (4-34); AST 27 U/L (14-36); African American GFR (CKD) >90 (>60 ml/min/1.73 sqM); Albumin 4.2 g/dL (3.5-5.0); Alkaline Phosphatase 72 U/L (38-126); Anion Gap 10 mmol/L; Blood Urea Nitrogen 11 mg/dL (7-17); Calcium 9.1 mg/dL (8.4-10.2); Carbon Dioxide 26 mmol/L (22-30); Chloride 102 mmol/L (98-107); Glucose 121 mg/dL (74-99); Non-African American GFR(CKD) >90 (>60 ml/min/1.73 sqM); Potassium 4.1 mmol/L (3.5-5.1); Sodium 138 mmol/L (137-145); Total Bilirubin 0.7 mg/dL (0.2-1.3); Total Protein 7.3 g/dL (6.3-8.2)
--- NOTE | 2020-10-12 13:25 | CT ---
EXAMINATION TYPE: CT abdomen pelvis w con DATE OF EXAM: 10/12/2020 COMPARISON: 07/01/2020 HISTORY: 35-year-old female with abdominal pain and swelling TECHNIQUE: Contiguous axial scanning of the abdomen and pelvis following administration of 100 ml Iso dylan 300 IV contrast. Delayed images through the kidneys and coronal/sagittal reconstructions perform ed. CT DLP: 1135.3 mGycm Automated exposure control for dose reduction was used. FINDINGS: Heart normal size without pericardial effusion. Some minimal strandy atelectasis in the lung bases. N o pleural effusion. Liver mildly enlarged at 19.2 cm. Portal venous system is patent. No biliary ductal dilatation. Gallbladder likely surgically absent. Adrenal glands, kidneys, spleen, and pancreas appear within normal limits. No dilated small bowel, free fluid, or free air. Stable scattered nonenlarged mesenteric lymph nodes. Normal appendix. Scattered minimal to mild stool. No pericolonic inflammatory change. Redemonstrated post interval change along the anterior abdominal wall relating to abdominal plasty. T here is now a inflamed fluid collection centered within the subcutaneous adipose layer of the infraum bilical midline measuring 11.3 cm wide by 2.8 cm thick by 9.3 cm craniocaudal. Surrounding fat strand ing and inflammation. Some reactive upper inguinal chain lymph nodes on both sides measuring up to 1.5 cm. Bladder not distended. Numerous pelvic fluid was. Uterus retroverted. Bladder partially collapsed. Gomez th ovaries are visualized. No abnormal fluid collection the pelvis. Bones: Mild marginal spurring at the right hip. IMPRESSION: 1. POSTSURGICAL CHANGE OF PRIOR ABDOMINOPLASTY BUT NOW WITH AN INFLAMED 11.3 X 9.3 X 2.8 CM FLUID COL LECTION WITHIN THE SUBCUTANEOUS ADIPOSE OF THE INFRAUMBILICAL MIDLINE. CORRELATE FOR ABSCESS WITH AFTAB ROUNDING CELLULITIS. 2. SOME REACTIVE BORDERLINE SIZED UPPER INGUINAL CHAIN LYMPH NODES MEASURING UP TO 1.5 CM. 3. MILD HEPATOMEGALY AT 19.2 CM.
[2020-10-12] MEDS ORDERED: NALOXONE 0.4 MG/ML 1 ML VIAL IV PRN (13:59)
[2020-10-12] MEDS: SODIUM CHLORIDE 0.9% 1,000 ML IV SCH (14:15)
[2020-10-12] MEDS ORDERED: ONDANSETRON 4 MG/2 ML VIAL IVP PRN (16:13)
[2020-10-12] MEDS ORDERED: ACETAMINOPHEN TAB 325 MG TAB PO PRN (16:13)
[2020-10-12] MEDS: HYDROcodone/APAP 5-325MG 1 EACH TAB PO PRN ×2 (16:34→20:50)
[2020-10-12] MEDS ORDERED: PIPERACILLIN-TAZOBACTAM 3.375 GM in SODIUM CHLORIDE 0.9% 100 ML IVPB SCH (20:00)
[2020-10-12] MEDS ORDERED: VANCOMYCIN IV PER PHARMACY 1 EACH MISC MISCELLANE PRN (21:15)
--- NOTE | 2020-10-12 21:58 | P.HPIM ---
History of Present Illness This is a pleasant 35 years old female with no significant past medical history. She is a patient of Dr. Nunes. She has previous surgical history of adenoidectomy, cholecystectomy, tonsillectomy, tubal ligation, D&C and recently underwent a tummy tuck procedure with her abdominoplasty to help her with her excess skin. She had 2 similar surgery 19 in April 2020 and a second one on August 2022 fix and muscle repair. She presents today because of abdominal pain of 3-4 days duration, abdominal pain is central, nonradiating increased significantly with walking and movement and felt like 10/10 however if she does not move it looks mild and non-bother her much. She has diarrhea about twice a day, no nausea vomiting but she has headache. She denies fever but she has hot flashes No urinary complaints. No chest pain or dyspnea. No weakness or numbness She denies smoking, alcohol or illicit drugs She currently has her. And does not need to be checked for her test Vitals are stable. Labs showing mild leukocytosis of 12.4 K, rest of CBC, BMP and liver enzymes are unremarkable. Urine analysis is cloudy with large urinary blood and RBCs of 35. No evidence of infection. Urine hCG is not detected CT of the abdomen and pelvis with contrast, infraumbilical midline fluid collection 11.3 x 2.8 x 9.3 cm with surrounding fat stranding and inflammation. Lymphadenopathy. Post surgical changes. Mild hepatomegaly An emergency room patient was started with Zosyn Review of Systems CONSTITUTIONAL: No fever, no malaise, no fatigue. HEENT: No recent visual problems or hearing problems. Denied any sore throat. CARDIOVASCULAR: No orthopnea, PND, no palpitations, no syncope. PULMONARY: No shortness of breath, no cough, no hemoptysis. GASTROINTESTINAL: No diarrhea,. Normoactive bowel sounds. NEUROLOGICAL: No headaches, no weakness, no numbness. HEMATOLOGICAL: Denies any bleeding or petechiae. GENITOURINARY: Denies any burning micturition, frequency, or urgency. MUSCULOSKELETAL/RHEUMATOLOGICAL: Denies any joint pain, swelling, or any muscle pain. ENDOCRINE: Denies any polyuria or polydipsia. Past Medical History Past Medical History: No Reported History Additional Past Medical History / Comment(s): GALLBLADDER DISORDER History of Any Multi-Drug Resistant Organisms: None Reported Past Surgical History: Adenoidectomy, Cholecystectomy, Tonsillectomy, Tubal Ligation Additional Past Surgical History / Comment(s): D & C, Mike yuan Past Anesthesia/Blood Transfusion Reactions: No Reported Reaction Past Psychological History: No Psychological Hx Reported Smoking Status: Never smoker Past Alcohol Use History: None Reported Past Drug Use History: None Reported - Past Family History Mother Family Medical History: No Reported History Father Family Medical History: Unable to Obtain Medications and Allergies Home Medications Medication Instructions Recorded Confirmed Type No Known Home Medications 07/01/20 10/12/20 History Allergies Allergy/AdvReac Type Severity Reaction Status Date / Time No Known Allergies Allergy Verified 10/12/20 12:27 Physical Exam Vitals: Vital Signs Temp Pulse Resp BP Pulse Ox 10/12/20 13:05 86 16 114/67 99 10/12/20 11:07 98.2 F 95 16 132/85 98 Intake and Output 10/11/20 10/12/20 10/12/20 22:59 06:59 14:59 Other: Weight 77.111 kg GENERAL: The patient is alert and oriented x3, not in any acute distress. Well developed, well nourished. HEENT: Pupils are round and equally reacting to light. EOMI. No scleral icterus. No conjunctival pallor. Normocephalic, atraumatic. No pharyngeal erythema. No thyromegaly. CARDIOVASCULAR: S1 and S2 present. No murmurs, rubs, or gallops. PULMONARY: Chest is clear to auscultation, no wheezing or crackles. -ABDOMEN: Soft, infra-umbilical tenderness, nondistended, normoactive bowel sounds. No palpable organomegaly. MUSCULOSKELETAL: No joint swelling or deformity. EXTREMITIES: No cyanosis, clubbing, or pedal edema. NEUROLOGICAL: Gross neurological examination did not reveal any focal deficits. SKIN: No rashes. No petechiae Results CBC & Chem 7: 10/12/20 11:33 10/12/20 11:33 Labs: Abnormal Lab Results - Last 24 Hours (Table) 10/12/20 10/12/20 10/12/20 Range/Units 11:33 11:33 11:33 WBC 12.4 H (3.8-10.6) k/uL Neutrophils # 8.7 H (1.3-7.7) k/uL Glucose 121 H (74-99) mg/dL Urine Appearance Cloudy H (Clear) Urine Protein Trace H (Negative) Urine Blood Large H (Negative) Ur Leukocyte Esterase Trace H (Negative) Urine RBC 35 H (0-5) /hpf Urine Bacteria Rare H (None) /hpf Urine Mucus Rare H (None) /hpf Assessment and Plan Assessment: Intra-abdominal abscess, infraumbilical midline fluid collection 11.3 x 2.8 x 9.3 cm Recent intra-abdominal surgery with tummy tuck (abdominoplasty) x2 History of cholecystectomy History of tonsillectomy and adenoidectomy, History of tubal ligation and D&C Plan: This is a pleasant 35 years old female who presents with intra-abdominal abscess. Continue with IV antibiotic. continue with IV fluid.follow-up culture results. Infectious disease and Surgical team consult Labs and medication were reviewed.. Continue same treatment. Continue with symptomatic treatment. Resume home medication. Monitor lytes and vitals. DVT and GI prophylaxis. Further recommendations depends on the clinical course of the patient DVT prophylaxis: Subcutaneous heparin GI Prophylaxis: Pepcid PT/OT: Pending Prognosis is guarded
[2020-10-12] MEDS: VANCOMYCIN 1,500 MG in SODIUM CHLORIDE 0.9% 250 ML IVPB SCH (22:06)
--- NOTE | 2020-10-12 23:22 | CONS ---
CONSULTATION DATE OF SERVICE: 10/12/2020 REASON FOR CONSULTATION: Abdominal wall abscess. HISTORY OF PRESENT ILLNESS: The patient is a 35-year-old female, in this patient who is status post tummy tuck procedure done at performed by Dr. Hendricks. Surgery was done middle of August 2020. Patient mentioned 2 weeks post surgery the patient wound abdominal incision opened up and she did have purulent drainage. She was evaluated by her surgeon. Apparently, the patient did have an I and D and primary closure. Mentioned there were no cultures done and she was not given antibiotics. Over the last few days, the patient started having increasing pain, swelling and redness to the amos-incision area. The patient described the pain to be sharp intensity, almost 7 to 8 out of 10 and no radiation. The patient did have erythema and some induration, but no drainage. She was evaluated by the surgeon yesterday and was advised a CT and no antibiotic was prescribed. The patient subsequently presented to [facility] with concern for fever. On presentation to the hospital, the patient was afebrile. The patient did have a white count of 12.4 with left shift. Creatinine 0.47. Urine was mildly positive. The patient did have a CT of abdomen and pelvis completed which did show postsurgical changes of prior abdominoplasty with inflamed 11.3 X 9.3 X 2.8 cm fluid collection within subcutaneous interposed tissue concerning for abscess. She was given a dose of Zosyn. Subsequently has been admitted to the hospital. Infectious Disease was consulted for further management of antibiotic therapy. REVIEW OF SYSTEMS: Positive points have been mentioned in HPI. Rest of systems negative. PAST MEDICAL HISTORY: Cholecystitis. PAST SURGICAL HISTORY: Adenoidectomy, cholecystectomy, tonsillectomy and tubal ligation and recent tummy tuck procedure. SOCIAL HISTORY: No history of smoking, drinking or drug use. FAMILY HISTORY: No pertinent findings noticed. ALLERGIES: No known drug allergies. MEDICATIONS: The patient is currently on Zosyn 3.375 g q.8 hours. He is on IV fluids, Zofran, Narcan, [place] and Tylenol. PHYSICAL EXAMINATION: Blood pressure 120/76, pulse of 73, temperature 97.7. She is 99% on room air. General description: The patient is a middle-aged female lying in bed in no distress. No tachypnea or accessory muscles of respiration use. HEENT: Examination shows no pallor or scleral icterus. Oral mucous membranes dry. No pharyngeal erythema or thrush. NECK: Trachea central. No thyromegaly. LUNGS: Unlabored breathing. Clear to auscultation anteriorly. No wheeze or crackles. Heart S1, S2. Regular rate and rhythm. ABDOMEN: Soft. . The patient did have significant erythema along the lower abdominal incision, slightly warm to touch and tender. No drainage was noticed. EXTREMITIES: No edema of the feet. NEUROLOGICAL: Patient is awake, alert, oriented times 3. Mood and affect normal. LABS: Hemoglobin 13.4, white count 8.4, BUN of 11, creatinine 0.57. Urine was positive. CT report as mentioned above. DIAGNOSTIC IMPRESSION AND PLAN: Patient with abdominal abscess in this patient who recently did have a tummy tuck procedure with abdominal plasty. This patient apparently did have dehiscence of the wound 2 weeks post procedure for which no cultures were done. For now, antibiotic exposure will need to cover for both gram-positive control as well as gram-negative responsible for the cellulitis. PLAN: 1. Await surgery evaluation and drainage of this abscess at which time deep culture should be obtained both aerobic and anaerobic. 2. Discontinue Zosyn. 3. Start the patient on vancomycin pharmacy to dose target of 15 along with cefepime 2 grams q.12 hours. 4. We will follow. 5. Homero the area of the redness. 6. We will follow on clinical condition and culture to further adjust medication if needed. Thank you for this consultation. Will follow this patient with you. MMODL / IJN: [id number] /
[2020-10-13] MEDS: SODIUM CHLORIDE 0.9% 1,000 ML IV SCH ×3 (02:46→21:24)
[2020-10-13] MEDS: diphenhydrAMINE 50 MG/ML 1 ML VIAL IVP PRN (02:46)
[2020-10-13] MEDS: VANCOMYCIN 1,500 MG in SODIUM CHLORIDE 0.9% 250 ML IVPB SCH ×3 (06:26→21:18)
[2020-10-13 06:51] LABS: Basophils % (A) 1 %; Eosinophils # (A) 0.2 k/uL (0-0.7); Eosinophils % (A) 3 %; HCT 34.5 % (34.0-46.0); HGB 11.7 gm/dL (11.4-16.0); Lymphocytes # (A) 2.3 k/uL (1.0-4.8); Lymphocytes % (A) 33 %; MCH 29.4 pg (25.0-35.0); MCHC 33.8 g/dL (31.0-37.0); MCV 86.9 fL (80.0-100.0); Mean Platelet Volume 7.6; Monocytes # (A) 0.4 k/uL (0-1.0); Monocytes % (A) 6 %; Neutrophils % (A) 56 %; Platelet Count 278 k/uL (150-450); RBC 3.97 m/uL (3.80-5.40)
[2020-10-13 06:59] LABS: African American GFR (CKD) >90 (>60 ml/min/1.73 sqM); Anion Gap 4 mmol/L; Blood Urea Nitrogen 15 mg/dL (7-17); Calcium 8.1 mg/dL (8.4-10.2); Carbon Dioxide 25 mmol/L (22-30); Chloride 106 mmol/L (98-107); Glucose 100 mg/dL (74-99); Non-African American GFR(CKD) >90 (>60 ml/min/1.73 sqM); Potassium 4.4 mmol/L (3.5-5.1); Sodium 135 mmol/L (137-145)
[2020-10-13] MEDS: CEFEPIME 2 GM in SODIUM CHLORIDE 0.9% 100 ML IVPB SCH ×2 (10:07→21:18)
[2020-10-13] MEDS: HYDROcodone/APAP 5-325MG 1 EACH TAB PO PRN ×2 (10:16→21:22)
--- NOTE | 2020-10-13 12:00 | P.GSCN ---
<Marylin Hernandez - Last Filed: 10/13/20 14:51> History of Present Illness Consult date: 10/13/20 History of present illness: CHIEF COMPLAINT: Abdominal pain HISTORY OF PRESENT ILLNESS: This is a 35-year-old female with a known history of Tummy tuck that was completed in April 2020. She also has a history of cholecystectomy and tubal ligation. Patient presents to the emergency room with complaints of pain, redness and swelling at her incision site from the tummy tuck that started 4 days ago. Patient states that she initially had the tummy tuck completed in April [address] Bennett from [facility]. She reports that the incision opened up and was having purulent drainage and she required to have a second tummy tuck which was done in August 2020. Patient reports that no cultures were taken and she was never given any antibiotics. Over the last 4 days patient has had experienced increase in abdominal pain at the incision site with redness and swelling. She's been having chills and sweats. She denies any fever. She had a follow-up with her surgeon who gave her a prescription for computed tomography scan of the abdomen. Patient then decided to come into the ER for further evaluation. Her computed tomography scan of the abdomen shows postsurgical change of prior abdominoplasty but now with an inflamed 11.3 x 9.3 x 2.8 cm fluid collection within the subcutaneous adipose of the infraumbilical midline. Correlate for abscess with surrounding cellulitis. Some reactive b orderline sized upper inguinal chain lymph nodes measuring up to 1.5 cm. Patient did have some leukocytosis white count 12.4. Surgical consult was requested regarding abdominal abscess. PAST MEDICAL HISTORY: See list. PAST SURGICAL HISTORY: See list. MEDICATIONS: See list. ALLERGIES: See list. SOCIAL HISTORY: No illicit drug use. REVIEW OF SYSTEMS: CONSTITUTIONAL: Denies fever or chills. HEENT: Denies blurred vision, vision changes, or eye pain. Denies hemoptysis ENDOCRINE: Denies heat or cold intolerance. CARDIOVASCULAR: Denies chest pain or pressure. RESPIRATORY: No shortness of breath. GASTROINTESTINAL: Denies nausea or vomiting. NEURO: Denies history of seizures. PSYCH: No depression or suicidal ideation HEMATOLOGIC: Denies bleeding disorders. LYMPHATIC: The patient denies any lumps and bumps around the neck. GENITOURINARY: Denies any blood in urine or increased urinary frequency. MUSCULOSKELETAL: Denies myalgias. Denies joint swelling. Denies decreased range of motion beyond patients baseline. SKIN: Denies pruitis. Denies rash. PHYSICAL EXAM: VITAL SIGNS: Reviewed GENERAL: Well-developed in no acute distress. HEENT: No sclera icterus. Extraocular movements grossly intact. Moist buccal mucosa. Head is atraumatic, normocephalic. Hears conversational speech. No nasal drainage. NECK: Supple without lymphadenopathy. CHEST: Non-labored respirations and equal bilateral excursions. CARDIOVASCULAR: Palpable 2+ radial pulses. ABDOMEN: Soft. Nondistended. Patient has tenderness with palpation at the incision site. There is erythema redness and warmth to touch. There is an area in the mid suprapubic area of the incision that is firm to touch about an inch in size. Patient also has tenderness around the umbilical area. There is a crusting scab in the umbilicus MUSCULOSKELETAL: No clubbing or cyanosis. NEUROLOGIC: No focal or lateralizing signs. Cranial nerves II through XII grossly intact. PSYCH: Appropriate affect. Alert and oriented to person, place and time. SKIN: Well perfused. Good skin turgor. LABORATORY DATA: WBC down from 12.4 to 7.0 hemoglobin 11.7 IMAGING: computed tomography scan of the abdomen shows postsurgical change of prior abdominoplasty but now with an inflamed 11.3 x 9.3 x 2.8 cm fluid collection w ithin the subcutaneous adipose of the infraumbilical midline. Correlate for abscess with surrounding cellulitis. Some reactive borderline sized upper inguinal chain lymph nodes measuring up to 1.5 cm. and mild hepatomegaly at 19.2 cm. ASSESSMENT: 1. Abdominal abscess with cellulitis at incision site with recent tummy tuck 2. History of dehiscence of the incision 2 weeks after initial surgery 3. Initial tummy tuck April 2020 and another surgical intervention in August 2020 after dehiscence of incision PLAN: - Continue antibiotics per infectious disease - Continue pain medication as needed - Further recommendations forthcoming per surgeon Physician [employer] Garment [employer]er note has been reviewed by physician. Signing provider agrees with the documented findings, assessment, and plan of care. Past Medical History Past Medical History: No Reported History Additional Past Medical History / Comment(s): GALLBLADDER DISORDER History of Any Multi-Drug Resistant Organisms: None Reported Past Surgical History: Adenoidectomy, Cholecystectomy, Tonsillectomy, Tubal Ligation Additional Past Surgical History / Comment(s): D & C, Tummy tuck Past Anesthesia/Blood Transfusion Reactions: No Reported Reaction Past Psychological History: No Psychological Hx Reported Smoking Status: Never smoker Past Alcohol Use History: None Reported Past Drug Use History: None Reported - Past Family History Mother Family Medical History: No Reported History Father Family Medical History: Unable to Obtain Medications and Allergies Home Medications Medication Instructions Recorded Confirmed Type No Known Home Medications 07/01/20 10/12/20 History Allergies Allergy/AdvReac Type Severity Reaction Status Date / Time No Known Allergies Allergy Verified 10/12/20 12:27 Surgical - Exam Vital Signs Temp Pulse Resp BP Pulse Ox 98.2 F 95 16 132/85 98 10/12/20 11:07 10/12/20 11:07 10/12/20 11:07 10/12/20 11:07 10/12/20 11:07 Results - Labs 10/13/20 06:19 10/13/20 06:19 Abnormal Lab Results - Last 24 Hours (Table) 10/12/20 10/12/20 10/12/20 Range/Units 11:33 11:33 11:33 WBC 12.4 H (3.8-10.6) k/uL Neutrophils # 8.7 H (1.3-7.7) k/uL Sodium (137-145) mmol/L Glucose 121 H (74-99) mg/dL Calcium (8.4-10.2) mg/dL Urine Appearance Cloudy H (Clear) Urine Protein Trace H (Negative) Urine Blood Large H (Negative) Ur Leukocyte Esterase Trace H (Negative) Urine RBC 35 H (0-5) /hpf Urine Bacteria Rare H (None) /hpf Urine Mucus Rare H (None) /hpf 10/13/20 Range/Units 06:19 WBC (3.8-10.6) k/uL Neutrophils # (1.3-7.7) k/uL Sodium 135 L (137-145) mmol/L Glucose 100 H (74-99) mg/dL Calcium 8.1 L (8.4-10.2) mg/dL Urine Appearance (Clear) Urine Protein (Negative) Urine Blood (Negative) Ur Leukocyte Esterase (Negative) Urine RBC (0-5) /hpf Urine Bacteria (None) /hpf Urine Mucus (None) /hpf Diabetes panel 10/12/20 10/13/20 Range/Units 11:33 06:19 Sodium 138 135 L (137-145) mmol/L Potassium 4.1 4.4 (3.5-5.1) mmol/L Chloride 102 106 (98-107) mmol/L Carbon Dioxide 26 25 (22-30) mmol/L BUN 11 15 (7-17) mg/dL Creatinine 0.57 0.55 (0.52-1.04) mg/dL Glucose 121 H 100 H (74-99) mg/dL Calcium 9.1 8.1 L (8.4-10.2) mg/dL AST 27 (14-36) U/L ALT 27 (4-34) U/L Alkaline Phosphatase 72 (38-126) U/L Total Protein 7.3 (6.3-8.2) g/dL Albumin 4.2 (3.5-5.0) g/dL Calcium panel 10/12/20 10/13/20 Range/Units 11:33 06:19 Calcium 9.1 8.1 L (8.4-10.2) mg/dL Albumin 4.2 (3.5-5.0) g/dL Pituitary panel 10/12/20 10/13/20 Range/Units 11:33 06:19 Sodium 138 135 L (137-145) mmol/L Potassium 4.1 4.4 (3.5-5.1) mmol/L Chloride 102 106 (98-107) mmol/L Carbon Dioxide 26 25 (22-30) mmol/L BUN 11 15 (7-17) mg/dL Creatinine 0.57 0.55 (0.52-1.04) mg/dL Glucose 121 H 100 H (74-99) mg/dL Calcium 9.1 8.1 L (8.4-10.2) mg/dL Adrenal panel 10/12/20 10/13/20 Range/Units 11:33 06:19 Sodium 138 135 L (137-145) mmol/L Potassium 4.1 4.4 (3.5-5.1) mmol/L Chloride 102 106 (98-107) mmol/L Carbon Dioxide 26 25 (22-30) mmol/L BUN 11 15 (7-17) mg/dL Creatinine 0.57 0.55 (0.52-1.04) mg/dL Glucose 121 H 100 H (74-99) mg/dL Calcium 9.1 8.1 L (8.4-10.2) mg/dL Total Bilirubin 0.7 (0.2-1.3) mg/dL AST 27 (14-36) U/L ALT 27 (4-34) U/L Alkaline Phosphatase 72 (38-126) U/L Total Protein 7.3 (6.3-8.2) g/dL Albumin 4.2 (3.5-5.0) g/dL <Geeta Patrick N - Last Filed: 10/14/20 12:34> History of Present Illness History of present illness: As above. Please see additional documentation below REASON FOR CONSULTATION: Complications from panniculectomy from outside institution HISTORY OF PRESENT ILLNESS: The patient is a 35-year-old female who had independently lost weight on her own over 3 or 4 years ago from 225 pounds to 188 pounds at present. She had maintained her weight loss and several years ago was seeking panniculectomy. She had gone to [place] for a tummy tuck. Her first surgery was in April 2020. She reports having compl ications with opening of her wound followed by skin infection. She had a many repeat panniculectomy 2 months ago, August 2020. She had last seen her surgeon less than 2 days prior to admission after obtaining an order for CT of the abdomen and pelvis from her surgeon. She came locally to [facility] with diagnostic studies obtained. She had findings of abdominal fluid collection consistent with abscess hence her admission. General surgery is consulted for management of abdominal wall abscess. She reports pain along the suprapubic area. She reports this is her second wound complication following her index surgery April 2020, 6 months ago. PAST MEDICAL HISTORY: 1. Obesity. 2. Body mass index of 38.4 down to 31.3. 3. Osteoarthritis of the knees. 4. Gastroesophageal reflux disease. PAST SURGICAL HISTORY: 1. Tonsillectomy. 2. Tummy tuck with panniculectomy HOME MEDICATIONS: 1. Motrin. ALLERGIES: Denies. SOCIAL HISTORY: Active tobacco use. FAMILY HISTORY: Has family history of ulcerative colitis disease or Crohn's disease. Family history of morbid obesity. No lupus in family. No reports of stomach or esophageal cancer. Family history of diabetes and hypertension. REVIEW OF ORGAN SYSTEMS: CONSTITUTIONAL: At her height of 5 foot 5 inches her ideal body weight is 149 pounds. She is 34 pounds overweight. She has maintained 42 pound weight loss on her own. Her highest weight is 225 pounds. She comes in today weighing 183 pounds. Her body mass index is down from 37.5 to 31.6. HEENT: Denies any active troubles with vision or hearing. No troubles with swallowing. ENDOCRINE: No diabetes. No hypothyroidism. CARDIOVASCULAR: No reports of palpitations or heart attacks or chest pain. RESPIRATORY: Has daytime somnolence. No asthma. GI: Denies any bright red blood per rectum. Does have gastroesophageal reflux disease as described above. Has diarrhea. MUSCULOSKELETAL: Has lower back pain and joint pain. Has osteoarthritis of the hips and knees. NEURO: No headaches. No seizure disorders. PSYCH: No depression or suicidal ideation. RHEUMATOLOGIC: No lupus. No rheumatoid arthritis. HEMATOLOGIC: Denies any abnormal bleeding or bruising. No personal history of DVTs. SKIN: No rash. No skin cancer. PHYSICAL EXAM: VITAL SIGNS: Height 5 foot 5 inches, weight 183 pounds. BMI 31.6 GENERAL: Well-developed in no acute distress. HEENT: No scleral icterus. Extraocular movements grossly intact. Hears conversational speech. No nasal drainage. NECK: Supple without lymphadenopathy. CHEST: Nonlabored respirations with equal bilateral excursions. CARDIOVASCULAR: Regular rate and regular rhythm. Distal 2+ pulses. ABDOMEN: Granulating panniculectomy site from hip to hip with tenderness and palpable fluid collection MUSCULOSKELETAL: No clubbing, cyanosis. No pre-tibial pitting edema. NEURO: No focal or lateralizing signs. Cranial nerves 2 through 12 grossly within normal limits. PSYCH: Appropriate affect. Alert and oriented to person, place and time. SKIN: Good skin turgor. Well perfused. LABS: WBC on admission 12.4, elevated. STUDIES: CT of the abdomen and pelvis was independently reviewed by me demonstrated a large fluid collection suprapubic with fascial imbrication along the midline consistent with abdominoplasty. Inflammatory changes also consistent with postsurgical changes of tummy tuck. This is my independent interpretation. RADIOLOGY: CT of the abdomen and pelvis confirms 11 x 9 x 3 cm suprapubic fluid collection along the abdominal anterior wall. EKG: Review consistent with normal sinus rhythm. ASSESSMENT: 1. Panniculectomy with complications of wound dehiscence/infection 2. Body mass index of 37.5 to 31.6. 3. Osteoarthritis of the knees. 4. Gastroesophageal reflux disease. 5. Gallbladder disorder. 6. Family history of gallbladder disorder. 7. Family history of obesity. 8. Family history of lupus and Crohn's disease. 9. Active tobacco abuse 10. Panniculectomy with complications of wound dehiscence/infection PLAN: 1. She comes in with a recurrent and complicated complicated infection of the abdominal wall which her were the risks consistent with abdominoplasty. 2. On review, patient still smokes which puts her extreme risk for infections as described on presentation including compromise wound healing. 3. She has a large symptomatic fluid collection of the abdominal wall which is to be expected however with erythema. She reports pre-existing history of purulent discharge from her wound consistent with abscess. 4. Options for interventional radiology drainage versus open surgical drainage versus no drainage was reviewed. 5. Patient agreed to proceed with open drainage for recurrent abdominal wall abscess 6. She is elevated risk for complications due to pre-existing multiple surgical site infection and chronic tobacco abuse disorder Surgical - Exam Vital Signs Temp Pulse Resp BP Pulse Ox 98.2 F 95 16 132/85 98 10/12/20 11:07 10/12/20 11:07 10/12/20 11:07 10/12/20 11:07 10/12/20 11:07 Results - Labs 10/14/20 06:57 10/14/20 06:57 Abnormal Lab Results - Last 24 Hours (Table) 10/13/20 Range/Units 06:19 Sodium 135 L (137-145) mmol/L Glucose 100 H (74-99) mg/dL Calcium 8.1 L (8.4-10.2) mg/dL Diabetes panel 10/13/20 Range/Units 06:19 Sodium 135 L (137-145) mmol/L Potassium 4.4 (3.5-5.1) mmol/L Chloride 106 (98-107) mmol/L Carbon Dioxide 25 (22-30) mmol/L BUN 15 (7-17) mg/dL Creatinine 0.55 (0.52-1.04) mg/dL Glucose 100 H (74-99) mg/dL Calcium 8.1 L (8.4-10.2) mg/dL Calcium panel 10/13/20 Range/Units 06:19 Calcium 8.1 L (8.4-10.2) mg/dL Pituitary panel 10/13/20 Range/Units 06:19 Sodium 135 L (137-145) mmol/L Potassium 4.4 (3.5-5.1) mmol/L Chloride 106 (98-107) mmol/L Carbon Dioxide 25 (22-30) mmol/L BUN 15 (7-17) mg/dL Creatinine 0.55 (0.52-1.04) mg/dL Glucose 100 H (74-99) mg/dL Calcium 8.1 L (8.4-10.2) mg/dL Adrenal panel 10/13/20 Range/Units 06:19 Sodium 135 L (137-145) mmol/L Potassium 4.4 (3.5-5.1) mmol/L Chloride 106 (98-107) mmol/L Carbon Dioxide 25 (22-30) mmol/L BUN 15 (7-17) mg/dL Creatinine 0.55 (0.52-1.04) mg/dL Glucose 100 H (74-99) mg/dL Calcium 8.1 L (8.4-10.2) mg/dL Assessment and Plan (1) Abdominal wall abscess Current Visit: Yes Status: Acute Code(s): L02.211 - CUTANEOUS ABSCESS OF ABDOMINAL WALL SNOMED Code(s): 13850622 (2) Leukocytosis Current Visit: Yes Status: Acute Code(s): D72.829 - ELEVATED WHITE BLOOD CELL COUNT, UNSPECIFIED SNOMED Code(s): 890843264 (3) Tobacco abuse disorder Current Visit: Yes Status: Acute Code(s): Z72.0 - TOBACCO USE SNOMED Code(s): 111544499 (4) Obesity (BMI 30.0-34.9) Current Visit: Yes Status: Acute Code(s): E66.9 - OBESITY, UNSPECIFIED SNOMED Code(s): 980186364558746
--- NOTE | 2020-10-13 19:58 | P.PN ---
Subjective This is a pleasant 35 years old female with no significant past medical history. She is a patient of Dr. Nunes. She has previous surgical history of adenoidectomy, cholecystectomy, tonsillectomy, tubal ligation, D&C and recently underwent a tummy tuck procedure with her abdominoplasty to help her with her excess skin. She had 2 similar surgery 19 in April 2020 and a second one on August 2022 fix and muscle repair. She presents today because of abdominal pain of 3-4 days duration, abdominal pain is central, nonradiating increased significantly with walking and movement and felt like 10/10 however if she does not move it looks mild and non-bother her much. She has diarrhea about twice a day, no nausea vomiting but she has headache. She denies fever but she has hot flashes No urinary complaints. No chest pain or dyspnea. No weakness or numbness She denies smoking, alcohol or illicit drugs She currently has her. And does not need to be checked for her test Vitals are stable. Labs showing mild leukocytosis of 12.4 K, rest of CBC, BMP and liver enzymes are unremarkable. Urine analysis is cloudy with large urinary blood and RBCs of 35. No evidence of infection. Urine hCG is not detected CT of the abdomen and pelvis with contrast, infraumbilical midline fluid collection 11.3 x 2.8 x 9.3 cm with surrounding fat stranding and inflammation. Lymphadenopathy. Post surgical changes. Mild hepatomegaly An emergency room patient was started with Zosyn 10/13/2020 Patient is still complaining from lower abdominal pain. Discussed the case with infectious disease team or change antibiotics to cefepime and IV vancomycin Surgery team evaluated the patient and the recommended no surgical intervention and to continue with antibiotic. It looks like the second surgery in August 2020 was due to wound dehiscence as per surgery note Review of Systems CONSTITUTIONAL: No fever, no malaise, no fatigue. HEENT: No recent visual problems or hearing problems. Denied any sore throat. CARDIOVASCULAR: No orthopnea, PND, no palpitations, no syncope. PULMONARY: No shortness of breath, no cough, no hemoptysis. GASTROINTESTINAL: No diarrhea,. Normoactive bowel sounds. Active Medications Generic Name Dose Route Start Last Admin Trade Name Freq PRN Reason Stop Dose Admin Acetaminophen 650 mg 10/12/20 16:13 10/13/20 10:15 Acetaminophen Tab 325 Mg Tab PO 325 mg Q6HR PRN Administration Fever and/ or Pain Hydrocodone Bitart/Acetaminophen 1 each 10/12/20 16:13 10/13/20 10:16 Hydrocodone/Apap 5-325mg 1 Each Tab PO 1 each Q4HR PRN Administration Pain Diphenhydramine HCl 25 mg 10/13/20 02:34 10/13/20 02:46 Diphenhydramine 50 Mg/Ml 1 Ml Vial IVP 25 mg Q6HR PRN Administration Allergy Symptoms Sodium Chloride 1,000 mls @ 100 mls/hr 10/12/20 14:00 10/13/20 10:11 Saline 0.9% IV Not Given .Q10H MIGUELITO Cefepime HCl 2 gm/ Sodium 100 mls @ 25 mls/hr 10/13/20 09:00 10/13/20 10:07 Chloride IVPB 25 mls/hr Q12HR MIGUELITO Administration Vancomycin HCl 1,500 mg/ 250 mls @ 125 mls/hr 10/12/20 21:30 10/13/20 14:18 Sodium Chloride IVPB 125 mls/hr Q8H MIGUELITO Administration Miscellaneous Information 0 each 10/14/20 12:30 Vancomycin Trough Due 1 Each Misc MISCELLANE 10/14/20 12:31 DIRECTED ONE Naloxone HCl 0.2 mg 10/12/20 13:59 Naloxone 0.4 Mg/Ml 1 Ml Vial IV Q2M PRN Opioid Reversal Ondansetron HCl 4 mg 10/12/20 16:13 Ondansetron 4 Mg/2 Ml Vial IVP Q6HR PRN Nausea And Vomiting Objective - Vital Signs Vital signs: Vital Signs Temp 97.7 F 10/13/20 12:37 Pulse 67 10/13/20 12:37 Resp 16 10/13/20 12:37 BP 102/66 10/13/20 12:37 Pulse Ox 98 10/13/20 12:37 Intake & Output 10/12/20 10/13/20 10/13/20 18:59 06:59 18:59 Intake Total 940 Balance 940 Weight 83.4 kg Intake: Intake, IV Titration 400 Amount Sodium Chloride 0.9% 1, 400 000 ml @ 100 mls/hr IV . Q10H MIGUELITO Rx#:[id number] Oral 540 Other: # Voids 1 2 - Exam GENERAL: The patient is alert and oriented x3, not in any acute distress. Well developed, well nourished. HEENT: Pupils are round and equally reacting to light. EOMI. No scleral icterus. No conjunctival pallor. Normocephalic, atraumatic. No pharyngeal erythema. No thyromegaly. CARDIOVASCULAR: S1 and S2 present. No murmurs, rubs, or gallops. PULMONARY: Chest is clear to auscultation, no wheezing or crackles. -ABDOMEN: Soft, lower abdominal tenderness, lower abdomen transverse incision but looks closed with no discharge, nondistended, normoactive bowel sounds. No palpable organomegaly. MUSCULOSKELETAL: No joint swelling or deformity. EXTREMITIES: No cyanosis, clubbing, or pedal edema. NEUROLOGICAL: Gross neurological examination did not reveal any focal deficits. SKIN: No rashes. no petechiae. - Labs CBC & Chem 7: 10/13/20 06:19 10/13/20 06:19 Labs: Abnormal Lab Results - Last 24 Hours (Table) 10/13/20 Range/Units 06:19 Sodium 135 L (137-145) mmol/L Glucose 100 H (74-99) mg/dL Calcium 8.1 L (8.4-10.2) mg/dL Assessment and Plan Assessment: Intra-abdominal abscess, infraumbilical midline fluid collection 11.3 x 2.8 x 9.3 cm Recent intra-abdominal surgery with tummy tuck (abdominoplasty) x2. The incision looks closed and healing History of cholecystectomy History of tonsillectomy and adenoidectomy, History of tubal ligation and D&C Plan: This is a pleasant 35 years old female who presents with intra-abdominal abscess. Continue with IV antibiotic. continue with IV fluid.follow-up culture results. Infectious disease and Surgical team consult, both recommend with IV antibiotics for now Labs and medication were reviewed.. Continue same treatment. Continue with symptomatic treatment. Resume home medication. Monitor lytes and vitals. DVT and GI prophylaxis. Further recommendations depends on the clinical course of the patient DVT prophylaxis: Subcutaneous heparin GI Prophylaxis: Pepcid
--- NOTE | 2020-10-13 23:36 | PN ---
PROGRESS NOTE DATE OF SERVICE: 10/13/2020 REASON FOR FOLLOWUP: Abdominal wall abscess and cellulitis. INTERVAL HISTORY: The patient is currently afebrile. The patient is breathing comfortably. The patient's abdominal pain has slightly decreased in intensity. No chest pain, shortness of breath or cough. No nausea, no vomiting, no abdominal pain or diarrhea. PHYSICAL EXAMINATION: Blood pressure 106/69 with a pulse of 74, temperature 98.4. She is 99% on room air. General description is a middle-aged female lying in bed in no distress. RESPIRATORY SYSTEM: Unlabored breathing. Clear to auscultation anteriorly. HEART: S1, S2. Regular rate and rhythm. ABDOMEN: Swelling and redness slightly decreased. LABS: Hemoglobin 11.7, white count 7.0, BUN of 15, creatinine 0.55. Blood culture has been negative. DIAGNOSTIC IMPRESSION AND PLAN: Patient with an abdominal wall abscess in this patient who recently did have tummy tuck procedure. The patient has been evaluated by General Surgery with a plan for open drainage, at which time deep culture will be obtained. Antibiotic in the form of vancomycin and cefepime with discharge antibiotic depending on culture report. Continue with supportive care. MMODL / IJN: [id number] /
[2020-10-14] MEDS: VANCOMYCIN 1,500 MG in SODIUM CHLORIDE 0.9% 250 ML IVPB SCH ×2 (05:30→13:21)
[2020-10-14] MEDS: SODIUM CHLORIDE 0.9% 1,000 ML IV SCH ×3 (05:31→21:47)
[2020-10-14 07:12] LABS: Basophils % (A) 1 %; Eosinophils # (A) 0.2 k/uL (0-0.7); Eosinophils % (A) 2 %; HCT 35.8 % (34.0-46.0); HGB 11.9 gm/dL (11.4-16.0); Lymphocytes # (A) 1.9 k/uL (1.0-4.8); Lymphocytes % (A) 24 %; MCH 28.8 pg (25.0-35.0); MCHC 33.2 g/dL (31.0-37.0); MCV 86.7 fL (80.0-100.0); Mean Platelet Volume 7.5; Monocytes # (A) 0.3 k/uL (0-1.0); Monocytes % (A) 4 %; Neutrophils # (A) 5.3 k/uL (1.3-7.7); Neutrophils % (A) 68 %; Platelet Count 285 k/uL (150-450); RBC 4.13 m/uL (3.80-5.40); RDW 12.8 % (11.5-15.5); WBC 7.9 k/uL (3.8-10.6)
[2020-10-14 07:23] LABS: African American GFR (CKD) >90 (>60 ml/min/1.73 sqM); Anion Gap 4 mmol/L; Blood Urea Nitrogen 11 mg/dL (7-17); Calcium 8.4 mg/dL (8.4-10.2); Carbon Dioxide 27 mmol/L (22-30); Chloride 105 mmol/L (98-107); Glucose 97 mg/dL (74-99); Non-African American GFR(CKD) >90 (>60 ml/min/1.73 sqM); Potassium 4.4 mmol/L (3.5-5.1); Sodium 136 mmol/L (137-145)
[2020-10-14] MEDS ORDERED: HYDROmorphone (PF) 1 MG/ML ONE (07:27)
[2020-10-14] MEDS ORDERED: PROPOFOL 10 MG/ML 20 ML VIAL IV ONE (07:27)
[2020-10-14] MEDS ORDERED: HEPARIN SODIUM,PORCINE 5,000 UNIT/ML 1 ML VIAL ONE (07:27)
[2020-10-14] MEDS ORDERED: fentaNYL (PF) 50 MCG/ML 2 ML AMP ONE (07:27)
[2020-10-14] MEDS ORDERED: MIDAZOLAM 2 MG/2 ML VIAL ONE (07:27)
[2020-10-14] MEDS ORDERED: SUCCINYLCHOLINE CHLORIDE 100 MG/5 ML SYR IV ONE (07:27)
[2020-10-14] MEDS ORDERED: LIDOCAINE 1% INJ 10MG/ML (20 ML MDV) ONE (07:27)
--- NOTE | 2020-10-14 07:28 | P.HPADDEND ---
H&P Addendum H&P Addendum Date: 10/14/20 CT of the abdomen and pelvis reviewed with large abscess. We'll proceed with drainage via open technique. White blood cell count normal today. Benefits and risks reviewed.
[2020-10-14] MEDS ORDERED: IV FLUID CONTINUATION 1,000 ML IV ONE ×2 (07:30)
[2020-10-14] MEDS ORDERED: DEXAMETHASONE SOD PHOSPHATE 4 MG/ML 1 ML VIAL IV ONE (07:34)
[2020-10-14] MEDS ORDERED: BUPIVACAINE (PF) 0.25% 30 ML VIAL SQ ONE (08:01)
--- NOTE | 2020-10-14 08:33 | P.OP ---
Date of Procedure: 10/14/20 Description of Procedure: SURGEON: TRAN HUERTA MD [employer] ENGINEER: NONE. PREOPERATIVE DIAGNOSES: 1. Complex abdominal wall abscess suprapubic 2. Leukocytosis 3. Chronic tobacco use 4. History of recent abdominoplasty 5. Obesity due to excess calories BMI 31.6 6. Abnormal computed tomography scan 11 x 9 x 3 cm abdominal wall abscess POSTOPERATIVE DIAGNOSES: 1. Complex abdominal wall abscess suprapubic, deep subcutaneous 2. Leukocytosis 3. Chronic tobacco use 4. History of recent abdominoplasty 5. Obesity due to excess calories BMI 31.6 6. Abnormal computed tomography scan 11 x 9 x 3 cm abdominal wall abscess OPERATION: 1. Incision and drainage of complex deep subcutaneous suprapubic abdominal wall abscess, 11 x 9 cm 2. Mechanical debridement using 2 L normal saline of pulse lavage of complex abdominal wall abscess 3. Placement of round #19 drain abscess pocket ANESTHESIA: Gen. with local anesthetic ESTIMATED BLOOD LOSS: 5 mL. SPECIMENS REMOVED: 1. Aerobic, anaerobic culture of the complex abdominal wall wound. COMPLICATIONS: None. Condition: stable Disposition: floor Operative Findings: 1. Over 20-30 mL of seropurulent drainage from abdominal abscess performed 2. Pulse lavage 2 L normal saline of abdominal wall pocket performed for mechanical debridement 3. Drain placed in evacuated abscess pocket INDICATIONS: The patient patient is a 35-year-old female who presents with lower abdominal suprapubic swelling with moderate abdominal pain following abdominoplasty. Diagnostic studies were consistent with complicated abdominal wall abscess. She had been started on vancomycin. Given the complexity and size the abscess, open surgical intervention was described. Benefits and risks including bleeding, infection, wound dehiscence, cosmetic deformity were reviewed. Informed consent was obtained. DESCRIPTION OF PROCEDURE: Patient was brought into the operating room and laid in supine position. After general anesthetic, the abdomen and thigh were prepped and draped in a standard sterile fashion. The abdominal wall swelling was anesthetized using local anesthetic as a field block. Attention was then brought to the complex suprapubic swelling 11 x 9 cm. Using a #15 blade a 2-cm transverse incision was made along the skin tension lines at her left granulating hip incision. A hemostat was used to dissect through the subcutaneous tissue to the fascia. Immediately, an egress of yellow and clear purulence non-malodorous was found and aerobic and anaerobic cultures were obtained. Next suction was used whereby approximately 25 to 30 mL of boy pus was aspirated from the wound. The pocket was flushed using dilute hydrogen peroxide. Using a pulse lavage of 2 L normal saline for mechanical debridement to the fascia, the deep subcutaneous pocket was copiously irrigated. A counter-incision was made over the pubis where a round #19 drain was exited above the right pubis. The drain was cut to fit into the deep pocket. The transverse incision was closed in layers using 0 Vicryl for the deep subcutaneous tissue and fascia followed by 3-0 Monocryl in interrupted subcuticular fashion for the dermis. Exofin tape was placed over the transverse incision after cleansing with skin. A drain stitch 2-0 nylon was placed. Opti foam 4x4 dressing was placed over the STEPHANIE site including skin incision. An abdominal binder was placed. The skin was cleansed. The patient was awoken from anesthesia. All sponge and instrument counts were verified correct by certified surgical technologist. The patient was transferred to postanesthesia care unit in stable condition.
[2020-10-14] MEDS ORDERED: SODIUM CHLORIDE 0.9% 1,000 ML IV ONE (08:35)
[2020-10-14] MEDS ORDERED: HYDROmorphone 1 MG/ML 1 ML SYRINGE IVP ONE ×2 (08:55→09:00)
[2020-10-14] MEDS: diphenhydrAMINE 50 MG/ML 1 ML VIAL IVP PRN ×2 (09:20→15:38)
[2020-10-14] MEDS: CEFEPIME 2 GM in SODIUM CHLORIDE 0.9% 100 ML IVPB SCH ×2 (10:00→21:46)
[2020-10-14] MEDS: ENOXAPARIN 30 MG/0.3 ML SYRINGE SQ SCH (10:12)
[2020-10-14] MEDS ORDERED: VANCOMYCIN TROUGH DUE 1 EACH MISC MISCELLANE ONE (12:30)
[2020-10-14] MEDS: HYDROcodone/APAP 5-325MG 1 EACH TAB PO PRN ×2 (13:29→18:23)
--- NOTE | 2020-10-14 14:18 | P.PN ---
Progress Note - Text Progress Note Date: 10/14/20 Postoperatively, findings were described to patient and her family bedside. No exposure to pets described. Additionally, STEPHANIE drains will be in at least 1 week. Continue hospitalization pending cultures and need for IV antibiotics versus oral antibiotics. All questions were addressed to the patient's satisfaction.
[2020-10-14] MEDS: KETOROLAC 15 MG/ML 1 ML VIAL IVP SCH ×2 (15:35→22:01)
--- NOTE | 2020-10-14 15:36 | PN ---
PROGRESS NOTE DATE OF SERVICE: 10/14/2020 REASON FOR FOLLOWUP: Abdominal abscess. INTERVAL HISTORY: The patient was taken to the OR in this patient who is status post complex abdominal abscess, suprapubic and status post drainage of the same. The patient had tolerated the procedure. Has been complaining of abdominal pain though controlled. No chest pain, shortness of breath or cough. No diarrhea. PHYSICAL EXAMINATION: Blood pressure 105/62 with a pulse of 88, temperature 98.2. She is 96% on room air. General description is a middle-aged female lying in bed in no distress. RESPIRATORY SYSTEM: Unlabored breathing, clear to auscultation anteriorly. HEART: S1, S2. Regular rate and rhythm. ABDOMEN: Soft. No tenderness. LABS: Abdominal cultures currently pending. DIAGNOSTIC IMPRESSION AND PLAN: Patient with abdominal wall abscess in this patient who did have an abdominoplasty, status post drainage of this abscess. Patient is covered with cefepime and vancomycin, that will be continued. Change of antibiotic will depend on the culture report. We will check her outpatient IV antibiotic coverage. Continue with supportive care. MMODL / IJN: [id number] /
[2020-10-15] MEDS: VANCOMYCIN 1,500 MG in SODIUM CHLORIDE 0.9% 250 ML IVPB SCH ×2 (00:15→08:00)
[2020-10-15] MEDS: HYDROcodone/APAP 5-325MG 1 EACH TAB PO PRN (01:24)
[2020-10-15] MEDS: KETOROLAC 15 MG/ML 1 ML VIAL IVP SCH ×4 (04:43→21:10)
[2020-10-15 06:50] LABS: Basophils % (A) 0 %; Eosinophils # (A) 0.1 k/uL (0-0.7); Eosinophils % (A) 1 %; HCT 31.2 % (34.0-46.0); HGB 10.6 gm/dL (11.4-16.0); Lymphocytes # (A) 2.4 k/uL (1.0-4.8); Lymphocytes % (A) 28 %; MCH 29.3 pg (25.0-35.0); MCHC 33.9 g/dL (31.0-37.0); MCV 86.5 fL (80.0-100.0); Mean Platelet Volume 7.7; Monocytes # (A) 0.4 k/uL (0-1.0); Monocytes % (A) 4 %; Neutrophils # (A) 5.5 k/uL (1.3-7.7); Neutrophils % (A) 65 %; Platelet Count 283 k/uL (150-450); RDW 12.7 % (11.5-15.5); WBC 8.4 k/uL (3.8-10.6)
[2020-10-15 07:01] LABS: African American GFR (CKD) >90 (>60 ml/min/1.73 sqM); Anion Gap 4 mmol/L; Blood Urea Nitrogen 15 mg/dL (7-17); Calcium 8.3 mg/dL (8.4-10.2); Carbon Dioxide 25 mmol/L (22-30); Chloride 108 mmol/L (98-107); Glucose 109 mg/dL (74-99); Non-African American GFR(CKD) >90 (>60 ml/min/1.73 sqM); Potassium 4.3 mmol/L (3.5-5.1); Sodium 137 mmol/L (137-145)
--- NOTE | 2020-10-15 09:15 | P.PN ---
Subjective This is a pleasant 35 years old female with no significant past medical history. She is a patient of Dr. Nunes. She has previous surgical history of adenoidectomy, cholecystectomy, tonsillectomy, tubal ligation, D&C and recently underwent a tummy tuck procedure with her abdominoplasty to help her with her excess skin. She had 2 similar surgery 19 in April 2020 and a second one on August 2022 fix and muscle repair. She presents today because of abdominal pain of 3-4 days duration, abdominal pain is central, nonradiating increased significantly with walking and movement and felt like 10/10 however if she does not move it looks mild and non-bother her much. She has diarrhea about twice a day, no nausea vomiting but she has headache. She denies fever but she has hot flashes No urinary complaints. No chest pain or dyspnea. No weakness or numbness She denies smoking, alcohol or illicit drugs She currently has her. And does not need to be checked for her test Vitals are stable. Labs showing mild leukocytosis of 12.4 K, rest of CBC, BMP and liver enzymes are unremarkable. Urine analysis is cloudy with large urinary blood and RBCs of 35. No evidence of infection. Urine hCG is not detected CT of the abdomen and pelvis with contrast, infraumbilical midline fluid collection 11.3 x 2.8 x 9.3 cm with surrounding fat stranding and inflammation. Lymphadenopathy. Post surgical changes. Mild hepatomegaly An emergency room patient was started with Zosyn 10/13/2020 Patient is still complaining from lower abdominal pain. Discussed the case with infectious disease team or change antibiotics to cefepime and IV vancomycin Surgery team evaluated the patient and the recommended no surgical intervention and to continue with antibiotic. It looks like the second surgery in August 2020 was due to wound dehiscence as per surgery note 10/14/2020 Patient with intra-abdominal abscess, related to her tummy tuck, patient on cefepime and IV vancomycin per ID recommendation. Patient underwent incision and drainage by surgery team, today her pain is better, there is still tenderness which is expected from her surgery. Drain is in place with a few cc of serosanguineous fluid in the bag Follow-up culture results Objective - Vital Signs Vital signs: Vital Signs Temp 98.2 F 10/14/20 14:00 Pulse 88 10/14/20 14:00 Resp 16 10/14/20 14:00 BP 105/62 10/14/20 14:00 Pulse Ox 96 10/14/20 14:00 Intake & Output 10/13/20 10/14/20 10/14/20 18:59 06:59 18:59 Intake Total 2440 Output Total 635 Balance 1805 Intake: IV 1800 Intake, IV Titration 100 Amount Cefepime 2 gm In Sodium 100 Chloride 0.9% 100 ml @ 25 mls/hr IVPB Q12HR MIGU[facility] Rx #:[id number] Oral 540 Output: Drainage 30 Lower Abdomen 30 Urine 600 Estimated Blood Loss 5 Other: # Voids 2 2 1 - Exam GENERAL: The patient is alert and oriented x3, not in any acute distress. Well developed, well nourished. HEENT: Pupils are round and equally reacting to light. EOMI. No scleral icterus. No conjunctival pallor. Normocephalic, atraumatic. No pharyngeal erythema. No thyromegaly. CARDIOVASCULAR: S1 and S2 present. No murmurs, rubs, or gallops. PULMONARY: Chest is clear to auscultation, no wheezing or crackles. -ABDOMEN: Soft, lower abdominal tenderness, lower abdomen transverse incision but looks closed with no discharge, nondistended, normoactive bowel sounds. No palpable organomegaly. MUSCULOSKELETAL: No joint swelling or deformity. EXTREMITIES: No cyanosis, clubbing, or pedal edema. NEUROLOGICAL: Gross neurological examination did not reveal any focal deficits. SKIN: No rashes. no petechiae. - Labs CBC & Chem 7: 10/15/20 05:42 10/15/20 05:42 Labs: Abnormal Lab Results - Last 24 Hours (Table) 10/14/20 Range/Units 06:57 Sodium 136 L (137-145) mmol/L Microbiology - Last 24 Hours (Table) 10/12/20 17:26 Blood Culture - Preliminary Blood No Growth after 24 hours Assessment and Plan Assessment: Intra-abdominal abscess, infraumbilical midline fluid collection 11.3 x 2.8 x 9.3 cm, status post drainage and STEPHANIE drain is in place Recent intra-abdominal surgery with tummy tuck (abdominoplasty) x2. The incision looks closed and healing History of cholecystectomy History of tonsillectomy and adenoidectomy, History of tubal ligation and D&C Plan: This is a pleasant 35 years old female who presents with intra-abdominal abscess. Continue with IV antibiotic. continue with IV fluid.follow-up culture results. Infectious disease and Surgical team consult Labs and medication were reviewed.. Continue same treatment. Continue with symptomatic treatment. Resume home medication. Monitor lytes and vitals. DVT and GI prophylaxis. Further recommendations depends on the clinical course of the patient DVT prophylaxis: Subcutaneous heparin GI Prophylaxis: Pepcid
[2020-10-15] MEDS: CEFEPIME 2 GM in SODIUM CHLORIDE 0.9% 100 ML IVPB SCH ×2 (09:29→20:15)
--- NOTE | 2020-10-15 11:54 | P.PN ---
Progress Note - Text Progress Note Date: 10/15/20 Patient has no real complaints. Her abdomen soft. There is some serosanguineous drainage in the STEPHANIE drains. Status post incision and drainage of abdominal wall abscess. Patient will continue receive IV antibiotics. Apparently she is planned for discharge on Saturday.
[2020-10-15] MEDS: ENOXAPARIN 30 MG/0.3 ML SYRINGE SQ SCH (12:12)
[2020-10-15] MEDS ORDERED: ALPRAZolam 0.25 MG TAB PO PRN (15:04)
[2020-10-15] MEDS ORDERED: VANCOMYCIN 1,500 MG in SODIUM CHLORIDE 0.9% 250 ML IVPB SCH (16:00)
--- NOTE | 2020-10-15 17:02 | PN ---
PROGRESS NOTE DATE OF SERVICE: 10/15/2020 This 35-year-old woman who was admitted with acute intraabdominal abscess had a STEPHANIE drainage, which has rather became clear at this time. Patient on broad spectrum IV antibiotics. No chest pain. No palpitations. No fever. PHYSICAL EXAMINATION: Alert and oriented times three. Pulse 73, blood pressure 112/70, respiration 18, temperature 98 degrees, pulse ox 98% on room air. HEENT: Conjunctivae normal. NECK: No JVD. CARDIOVASCULAR: S1, S2. RESPIRATORY: Breath sounds diminished in the bases. ABDOMEN: Soft, nontender. NERVOUS SYSTEM: No focal deficits. LABS: WBC 8.2, hemoglobin 10.6, sodium 136, improved. ASSESSMENT: 1. Intraabdominal abscess and intraumbilical midline fluid collection status post STEPHANIE drainage. 2. Recent abdominal surgery with abdominoplasty. 3. History of cholecystectomy. 4. Tonsillectomy. 5. History of tubal ligation. 6. Mild hyponatremia. 7. Increased WBC, present on admission, anemia, anemia of chronic disease. RECOMMENDATIONS AND DISCUSSION: Recommend to continue current medications, symptomatic treatment. I would also recommend repeat labs. Closely follow with surgery. DVT prophylaxis. Guarded prognosis. Further recommendations to follow. MMODL / IJN: [id number] /
[2020-10-15] MEDS: TEMAZEPAM 15 MG CAP PO PRN (23:06)
--- NOTE | 2020-10-16 00:16 | PN ---
PROGRESS NOTE DATE OF SERVICE: 10/15/2020 REASON FOR FOLLOWUP: Abdominal wall abscess and cellulitis. INTERVAL HISTORY: Patient is currently afebrile. The patient is breathing comfortably. Overall pain and discomfort to the abdominal wound has decreased. Denies having any chest pain. No shortness of breath or cough. No nausea, vomiting. PHYSICAL EXAMINATION: Blood pressure 115/75, pulse of 72, temperature 98. She is 100% on room air. General description is a middle-aged female lying in bed in no distress. Respiratory system: Unlabored breathing. Clear to auscultation anteriorly. Heart S1, S2. Regular rate and rhythm. ABDOMEN: Soft, no tenderness. LABS: Wound culture now showing Gram-negative. DIAGNOSTIC IMPRESSION AND PLAN: Patient with abdominal abscess status post drainage. Culture showing gram-negative. We will keep the patient on Cefepime. Vancomycin discontinued, with discharge antibiotic depending upon the culture report and clinical response. Continue supportive care. MMODL / IJN: [id number] /
[2020-10-16] MEDS: KETOROLAC 15 MG/ML 1 ML VIAL IVP SCH ×4 (03:26→21:25)
[2020-10-16] MEDS: SODIUM CHLORIDE 0.9% 1,000 ML IV SCH ×4 (03:27→21:21)
[2020-10-16] MEDS: PANTOPRAZOLE 40 MG TABLET PO SCH (06:39)
[2020-10-16] MEDS ORDERED: VANCOMYCIN TROUGH DUE 1 EACH MISC MISCELLANE ONE (07:00)
[2020-10-16 08:02] LABS: HCT 32.7 % (34.0-46.0); HGB 10.7 gm/dL (11.4-16.0); MCH 28.5 pg (25.0-35.0); MCHC 32.8 g/dL (31.0-37.0); MCV 86.8 fL (80.0-100.0); Mean Platelet Volume 7.6; Platelet Count 301 k/uL (150-450); RBC 3.77 m/uL (3.80-5.40); RDW 12.9 % (11.5-15.5)
[2020-10-16 08:07] LABS: African American GFR (CKD) >90 (>60 ml/min/1.73 sqM); Anion Gap 4 mmol/L; Blood Urea Nitrogen 11 mg/dL (7-17); Calcium 8.1 mg/dL (8.4-10.2); Carbon Dioxide 26 mmol/L (22-30); Chloride 107 mmol/L (98-107); Glucose 81 mg/dL (74-99); Non-African American GFR(CKD) >90 (>60 ml/min/1.73 sqM); Potassium 4.1 mmol/L (3.5-5.1); Sodium 137 mmol/L (137-145)
[2020-10-16] MEDS: CEFEPIME 2 GM in SODIUM CHLORIDE 0.9% 100 ML IVPB SCH ×2 (08:17→21:25)
[2020-10-16] MEDS: ENOXAPARIN 30 MG/0.3 ML SYRINGE SQ SCH (08:17)
[2020-10-16 10:52] LABS: Eosinophils # (M) 0.28 k/uL (0-0.7); Lymphocytes # (M) 3.57 k/uL (1.0-4.8); Monocytes # (M) 0.28 k/uL (0-1.0); Neutrophils # (M) 2.87 k/uL (1.3-7.7); Neutrophils % (M) 41 %; Nucleated Red Blood Cells 0 /100 WBC (0-0); Total Cells Counted 100
--- NOTE | 2020-10-16 14:01 | P.PN ---
Progress Note - Text Progress Note Date: 10/16/20 Patient states she feels better. She has some serosanguineous drainage in her STEPHANIE drain. On exam abdomen soft. There is no significant cell is abdominal wall. Improving abdominal wall abscess. Patient will receive IV antibiotic.
--- NOTE | 2020-10-16 16:43 | PN ---
PROGRESS NOTE DATE OF SERVICE: 10/16/2020 INTERVAL HISTORY: This 35-year-old woman was admitted with intraabdominal abscess, had STEPHANIE drain. Patient on broad spectrum IV antibiotics. The culture shows Pseudomonas aeruginosa, poly sensitive. No chest pain. No palpitations. No fever. The STEPHANIE drain is draining bloody fluid. No cough. PHYSICAL EXAMINATION: GENERAL: Alert and oriented x3. VITAL SIGNS: Pulse 73, blood pressure 114/76, respirations 16, temperature 98.6, pulse ox 99% on room air. HEENT: Conjunctivae normal. Oral mucosa moist. NECK: No jugular venous distention. No carotid bruits. No lymph node enlargement. RESPIRATORY: Breath sounds diminished at the bases. No rhonchi, no crackles. HEART: S1 and S2, muffled. ABDOMEN: Soft, no tenderness. STEPHANIE drain present. EXTREMITIES: No edema, no swelling. NERVOUS: No focal deficits. LABS: WBC 7.0, hemoglobin 10.2. Other labs are noted. Vancomycin level noted. ASSESSMENT: 1. Intraabdominal abscess and fluid collection, status post STEPHANIE drainage, Pseudomonas aeruginosa. 2. History of recent abdominal surgery with abdominoplasty. 3. History of cholecystectomy. 4. Tonsillectomy. 5. History of tubal ligation. 6. Mild hyponatremia. 7. Increased WBC present on admission. 8. Anemia of chronic disease. RECOMMENDATIONS AND DISCUSSION: This is a 35-year-old woman who presented with multiple complex medical issues, we will monitor the patient closely. Continue the current management. Continue symptomatic treatment. Continue with antibiotics and STEPHANIE drain. Closely follow with Surgery and infectious Disease. Guarded prognosis. Further recommendations to follow. MMODL / IJN: [id number] /
[2020-10-16] MEDS: TEMAZEPAM 15 MG CAP PO PRN (20:54)
[2020-10-16] MEDS: HYDROcodone/APAP 5-325MG 1 EACH TAB PO PRN (21:24)
--- NOTE | 2020-10-16 23:22 | PN ---
PROGRESS NOTE DATE OF SERVICE: 10/16/2020. REASON FOR FOLLOW UP: Abdominal wall abscess and cellulitis and Pseudomonas. INTERVAL HISTORY: The patient is currently afebrile. Patient is breathing comfortably. Abdominal pain has improved. No chest pain, shortness of breath or cough. No diarrhea. PHYSICAL EXAMINATION: Her blood pressure is 120/74 with a pulse of 78, temperature 98.1. She is 100% on room air. General description: The patient is a middle aged female lying in bed in no distress. Respiratory system: Unlabored breathing, clear to auscultation anteriorly. HEART: S1, S2. Regular rate and rhythm. ABDOMEN: Soft, no tenderness. LABS: Hemoglobin is 10.7, white count 7.0, BUN of 11, creatinine 0.70. DIAGNOSTIC IMPRESSION AND PLAN: Patient with abdominal wall abscess and cellulitis, culture with Pseudomonas Aeruginosa. She will finish with oral Cipro 750 mg twice a day for ten days. Close outpatient followup. MMODL / IJN: [id number] /
[2020-10-17] MEDS: KETOROLAC 15 MG/ML 1 ML VIAL IVP SCH ×2 (03:12→10:25)
[2020-10-17 03:15] VITALS: RESP 16
[2020-10-17 05:32] LABS: Basophils # (A) 0.1 k/uL (0-0.2); Basophils % (A) 1 %; Eosinophils # (A) 0.2 k/uL (0-0.7); Eosinophils % (A) 3 %; HCT 35.9 % (34.0-46.0); HGB 11.7 gm/dL (11.4-16.0); Lymphocytes # (A) 3.1 k/uL (1.0-4.8); Lymphocytes % (A) 45 %; MCH 27.8 pg (25.0-35.0); MCHC 32.5 g/dL (31.0-37.0); MCV 85.8 fL (80.0-100.0); Mean Platelet Volume 7.1; Monocytes # (A) 0.3 k/uL (0-1.0); Monocytes % (A) 5 %; Neutrophils # (A) 3.1 k/uL (1.3-7.7); Neutrophils % (A) 45 %; Platelet Count 351 k/uL (150-450); RBC 4.19 m/uL (3.80-5.40); RDW 13.1 % (11.5-15.5); WBC 6.9 k/uL (3.8-10.6)
[2020-10-17 05:45] LABS: African American GFR (CKD) >90 (>60 ml/min/1.73 sqM); Anion Gap 5 mmol/L; Blood Urea Nitrogen 12 mg/dL (7-17); Calcium 8.6 mg/dL (8.4-10.2); Carbon Dioxide 26 mmol/L (22-30); Chloride 106 mmol/L (98-107); Glucose 91 mg/dL (74-99); Non-African American GFR(CKD) >90 (>60 ml/min/1.73 sqM); Sodium 137 mmol/L (137-145)
[2020-10-17 08:22] VITALS: BP 119/75; PULSE 81; TEMP 98.2
[2020-10-17] MEDS: ENOXAPARIN 30 MG/0.3 ML SYRINGE SQ SCH (08:52)
[2020-10-17] MEDS: CEFEPIME 2 GM in SODIUM CHLORIDE 0.9% 100 ML IVPB SCH (08:52)
[2020-10-17] MEDS: PANTOPRAZOLE 40 MG TABLET PO SCH (08:52)
--- NOTE | 2020-10-17 11:06 | P.PN ---
Subjective Progress Note Date: 10/17/20 CHIEF COMPLAINT: Abdominal wall abscess HISTORY OF PRESENT ILLNESS: The patient is a 35-year-old female status post drainage of complex abdominal wall abscess 10/13/20. Pain is controlled. No reports of fevers. She reports outputs from drain less than 30 mL daily. Dressings around STEPHANIE was wet from taking a shower. ROS: No fevers or chills. No nausea or vomiting. No chest pain. PHYSICAL EXAM: VITAL SIGNS: Reviewed GENERAL: Well-developed in no acute distress. HEENT: No scleral icterus. Extraocular movements grossly intact. Hears conversational speech. No nasal drainage. NECK: Supple without lymphadenopathy. CHEST: Nonlabored respirations with equal bilateral excursions. CARDIOVASCULAR: Regular rate and regular rhythm. Distal 2+ pulses. ABDOMEN: Dressing intact. No cellulitis. MUSCULOSKELETAL: No clubbing, cyanosis. No pre-tibial pitting edema. NEURO: No focal or lateralizing signs. Cranial nerves 2 through 12 grossly within normal limits. PSYCH: Appropriate affect. Alert and oriented to person, place and time. SKIN: Good skin turgor. Well perfused. LABS: WBC normal MICROBIOLOGY: Pseudomonas and sensitivity reviewed ASSESSMENT: 1. Panniculectomy with complications of abdominal wall abscess PLAN: 1. Stable for discharge with STEPHANIE drain to be removed in the office. 2. Discharge instructions including keeping dressing and STEPHANIE dry described 3. Off work until October 31 reviewed pending clinical course Objective - Vital Signs Vital signs: Vital Signs Temp 98.2 F 10/17/20 08:05 Pulse 81 10/17/20 08:05 Resp 16 10/17/20 08:05 BP 119/75 10/17/20 08:05 Pulse Ox 98 10/17/20 08:05 Intake & Output 10/16/20 10/17/20 10/17/20 18:59 06:59 18:59 Intake Total 550 Output Total 10 Balance 540 Intake: Intake, IV Titration 550 Amount Sodium Chloride 0.9% 1, 550 000 ml @ 0 mls/hr IV .STLTG Ex[employer] -[facility] ONE Rx#:[id number] Output: Drainage 10 Lower Abdomen 10 Other: Voiding Method Toilet Toilet # Voids 1 - Labs CBC & Chem 7: 10/17/20 05:16 10/17/20 05:16 Labs: Microbiology - Last 24 Hours (Table) 10/12/20 17:26 Blood Culture - Preliminary Blood No Growth after 96 hours 10/14/20 08:18 Anaerobic Culture - Preliminary Abdomen 10/14/20 08:18 Gram Stain - Final Abdomen Wound Culture - Final Pseudomonas aeruginosa Assessment and Plan (1) Abdominal wall abscess Current Visit: Yes Status: Acute Code(s): L02.211 - CUTANEOUS ABSCESS OF ABDOMINAL WALL SNOMED Code(s): 32878974 (2) Leukocytosis Current Visit: Yes Status: Acute Code(s): D72.829 - ELEVATED WHITE BLOOD CELL COUNT, UNSPECIFIED SNOMED Code(s): 557880664 (3) Tobacco abuse disorder Current Visit: Yes Status: Acute Code(s): Z72.0 - TOBACCO USE SNOMED Code(s): 059597650 (4) Obesity (BMI 30.0-34.9) Current Visit: Yes Status: Acute Code(s): E66.9 - OBESITY, UNSPECIFIED SNOMED Code(s): 394435094025743
--- NOTE | 2020-10-17 14:54 | P.PN ---
Subjective Progress Note Date: 10/17/20 HISTORY OF PRESENT ILLNESS This is a 35-year-old female patient treated for abdominal wall absce ss and cellulitis with Pseudomonas. Patient denies having abdominal pain. No nausea or vomiting. No chest pain, shortness of breath or cough. She has been afebrile, heart rate 81, blood pressure 119/75 and pulse ox 90% on room air. 3 BC 6.9. Creatinine 0.57. Plan for patient to follow-up in the wound center. Recommendations for Cipro 750 mg twice a day for 10 days. Prescription has been sent to her pharmacy. PHYSICAL EXAMINATION Gen: This is A 35-year-old female. HEENT: Head is atraumatic, normocephalic. Pupils equal, round. Sclerae is anicteric. NECK: Supple. No JVD. LUNGS: Clear to auscultation. No wheezes or rhonchi. No intercostal retractions. HEART: Regular rate and rhythm. ABDOMEN: Soft. Bowel sounds are present. No masses. No tenderness. EXTREMITIES: No pedal edema. No calf tenderness. NEUROLOGICAL: Patient is awake, alert and oriented x3. ASSESSMENT Abdominal wall abscess and cellulitis PLAN Ciprofloxacin 750 mg twice daily for 10 day course Follow-up in the wound center. The above dictated assessment and findings were discussed with Dr. Murphy. The impression and plan of care have been directed as dictated. Gail Malone nurse practitioner acting as scribe for Dr. Murphy. Objective - Vital Signs Vital signs: Vital Signs Temp 98.2 F 10/17/20 08:05 Pulse 81 10/17/20 08:05 Resp 16 10/17/20 08:05 BP 119/75 10/17/20 08:05 Pulse Ox 98 10/17/20 08:05 Intake & Output 10/16/20 10/17/20 10/17/20 18:59 06:59 18:59 Intake Total 550 Output Total 10 Balance 540 Intake: Intake, IV Titration 550 Amount Sodium Chloride 0.9% 1, 550 000 ml @ 0 mls/hr IV .[employer] -[facility] ONE Rx#:[id number] Output: Drainage 10 Lower Abdomen 10 Other: Voiding Method Toilet Toilet # Voids 1 - Labs CBC & Chem 7: 10/17/20 05:16 10/17/20 05:16 Labs: Microbiology - Last 24 Hours (Table) 10/12/20 17:26 Blood Culture - Preliminary Blood No Growth after 96 hours 10/14/20 08:18 Anaerobic Culture - Preliminary Abdomen 10/14/20 08:18 Gram Stain - Final Abdomen Wound Culture - Final Pseudomonas aeruginosa
--- NOTE | 2020-10-17 18:19 | DS ---
DISCHARGE SUMMARY DATE OF SERVICE: 10/17/2020 FINAL DIAGNOSES: 1. Intraabdominal abscess and fluid collection, status post STEPHANIE drainage, Pseudomonas aeruginosa, history of recent abdominal surgery with abdominoplasty. 2. History of cholecystectomy. 3. Tonsillectomy. 4. History of tubal ligation. 5. Mild hyponatremia. 6. Increased white count, present on admission. 7. Anemia of chronic disease. DISCHARGE DISPOSITION: The patient will be discharged in stable condition with guarded prognosis. HISTORY OF PRESENT ILLNESS: This 35-year-old woman with a past medical history of multiple medical problems was admitted with intraabdominal abscess. STEPHANIE drain was inserted. The patient was seen by Dr. Patrick. Pseudomonas was grown. Patient was seen by Dr. Murphy and Maxipime was given. The patient improved significantly. On exam, vitals are stable. CARDIOVASCULAR SYSTEM: S1, S2 muffled. ABDOMEN: Soft. NERVOUS SYSTEM: No focal deficit. The patient was seen by Dr. Patrick and Dr. Murphy. The patient will be discharged in stable condition with guarded prognosis. DISCHARGE ADVICE AND MEDICATIONS: 1. Diet is cardiac. 2. Activity limited until followup. 3. Follow up with Dr. Patrick as recommended. 4. Discharge instructions, including keeping the dressing and STEPHANIE drain per Dr. Patrick. 5. Continue with Cipro [address] Murphy. 6. Ibuprofen and Tylenol p.r.n. 7. Follow up with Dr. Oquendo as recommended. Once again, the patient will be discharged in stable condition with guarded prognosis. MMODL / IJN: [id number] /
== END 2020-10-17 13:35 | disposition home or self-care (01) | DRG 857 ==
LOC: EC 11:06 → 6PED 13:40 → OBSVTOIN 10-13 10:20
PROVIDERS: ADMIT Hospitalist; ATTEND Hospitalist
PROC: 0W9F00Z Drainage of Abdominal Wall with Drainage Device, Open Approach (ICD-10-PCS; principal; 2020-10-13)
PROC: 0JD80ZZ Extraction of Abdomen Subcutaneous Tissue and Fascia, Open Approach (ICD-10-PCS; principal; 2020-10-13)
DX: T81.42XA Infection following a procedure, deep incisional surgical site, initial encounter (principal); L02.211 Cutaneous abscess of abdominal wall; L03.311 Cellulitis of abdominal wall; E87.1 Hypo-osmolality and hyponatremia; D63.8 Anemia in other chronic diseases classified elsewhere; R16.0 Hepatomegaly, not elsewhere classified; E66.09 Other obesity due to excess calories; Z68.31 Body mass index [BMI] 31.0-31.9, adult; B96.5 Pseudomonas (aeruginosa) (mallei) (pseudomallei) as the cause of diseases classified elsewhere; N95.1 Menopausal and female climacteric states; Z72.0 Tobacco use; R19.7 Diarrhea, unspecified; Z90.49 Acquired absence of other specified parts of digestive tract; Z90.89 Acquired absence of other organs; Z98.51 Tubal ligation status; Z87.19 Personal history of other diseases of the digestive system; Z98.890 Other specified postprocedural states; Z87.42 Personal history of other diseases of the female genital tract; M17.0 Bilateral primary osteoarthritis of knee; K21.9 Gastro-esophageal reflux disease without esophagitis; Z83.3 Family history of diabetes mellitus; Z82.49 Family history of ischemic heart disease and other diseases of the circulatory system; Z83.49 Family history of other endocrine, nutritional and metabolic diseases; Z83.79 Family history of other diseases of the digestive system; Z82.69 Family history of other diseases of the musculoskeletal system and connective tissue
CPT/HCPCS: 36415; 74177; 80048; 80053; 80202; 81001; 81025; 83605; 85025; 87040; 87070; 87075; 87077; 87186; 87205; 96365; 96366; 99285

== ENCOUNTER 2021-01-18 13:10 | Observation (INO) | payer OTHER ==
[2021-01-18] MEDS ORDERED: KETOROLAC 15 MG/ML 1 ML VIAL IVP STA (14:29)
--- NOTE | 2021-01-18 14:47 | ED ---
General Adult HPI - General Chief complaint: Skin/Abscess/Foreign Body Stated complaint: Sent from Dr office Time Seen by Provider: 01/18/21 14:03 Source: patient, RN notes reviewed Mode of arrival: ambulatory Limitations: no limitations - History of Present Illness Initial comments: This a 35-year-old female presents emergency Department chief complaint abdominal pain. Patient states that she had a prior abdominoplasty states that ended up with multiple infections. Patient was hospitalized and had surgery for an abscess by Dr. Patrick. Patient states that she still followed up with her. She did try to contact her physician today was unable to get her in office in office recommended come emergency department. She reports no fevers or chil ls she states she has increased abdominal pain, swelling in the area of her prior abscess. Denies any dysuria hematuria denies any diarrhea constipation. - Related Data Home Medications Medication Instructions Recorded Confirmed No Known Home Medications 01/18/21 01/18/21 Allergies Allergy/AdvReac Type Severity Reaction Status Date / Time No Known Allergies Allergy Verified 01/18/21 14:53 Review of Systems ROS Statement: Those systems with pertinent positive or pertinent negative responses have been documented in the HPI. ROS Other: All systems not noted in ROS Statement are negative. Past Medical History Past Medical History: No Reported History Additional Past Medical History / Comment(s): GALLBLADDER DISORDER History of Any Multi-Drug Resistant Organisms: None Reported Past Surgical History: Adenoidectomy, Cholecystectomy, Tonsillectomy, Tubal Ligation Additional Past Surgical History / Comment(s): D & C, Tummy tuck Past Anesthesia/Blood Transfusion Reactions: No Reported Reaction Past Psychological History: No Psychological Hx Reported Smoking Status: Never smoker Past Alcohol Use History: None Reported Past Drug Use History: None Reported - Past Family History Mother Family Medical History: No Reported History Father Family Medical History: Unable to Obtain General Exam Limitations: no limitations General appearance: alert, in no apparent distress Head exam: Present: atraumatic, normocephalic, normal inspection Neck exam: Present: normal inspection, full ROM. Absent: tenderness, meningismus, lymphadenopathy Respiratory exam: Present: normal lung sounds bilaterally. Absent: respiratory distress, wheezes, rales, rhonchi, stridor Cardiovascular Exam: Present: regular rate, normal rhythm, normal heart sounds. Absent: systolic murmur, diastolic murmur, rubs, gallop, clicks GI/Abdominal exam: Present: soft, tenderness (There is tenderness along the incision the suprapubic region, no erythematous skin changes, there is some tenderness in the supraumbilical region), normal bowel sounds. Absent: distended, guarding, rebound, rigid Course Vital Signs 01/18/21 01/18/21 01/18/21 13:22 15:28 16:50 Temperature 98.1 F Pulse Rate 110 H 87 89 Respiratory 18 18 18 Rate Blood Pressure 141/73 112/73 102/67 O2 Sat by Pulse 97 98 97 Oximetry Medical Decision Making - Medical Decision Making 35-year-old presented for increased abdominal pain. Patient's had prior abdominal abscess CT shows improvement from prior I did discuss case with Dr. Patrick in which the patient will be admitted for observation and further evaluation. - Lab Data Result diagrams: 01/18/21 14:44 01/18/21 14:44 Lab Results 01/18/21 01/18/21 01/18/21 Range/Units 14:44 14:44 14:44 WBC 9.2 (3.8-10.6) k/uL RBC 4.73 (3.80-5.40) m/uL Hgb 13.4 (11.4-16.0) gm/dL Hct 40.1 (34.0-46.0) % MCV 84.9 (80.0-100.0) fL MCH 28.4 (25.0-35.0) pg MCHC 33.5 (31.0-37.0) g/dL RDW 14.2 (11.5-15.5) % Plt Count 316 (150-450) k/uL MPV 7.3 Neutrophils % 58 % Lymphocytes % 35 % Monocytes % 4 % Eosinophils % 2 % Basophils % 1 % Neutrophils # 5.3 (1.3-7.7) k/uL Lymphocytes # 3.2 (1.0-4.8) k/uL Monocytes # 0.4 (0-1.0) k/uL Eosinophils # 0.2 (0-0.7) k/uL Basophils # 0.0 (0-0.2) k/uL Sodium 140 (137-145) mmol/L Potassium 3.7 (3.5-5.1) mmol/L Chloride 107 (98-107) mmol/L Carbon Dioxide 27 (22-30) mmol/L Anion Gap 6 mmol/L BUN 13 (7-17) mg/dL Creatinine 0.62 (0.52-1.04) mg/dL Est GFR (CKD-EPI)AfAm >90 (>60 ml/min/1.73 sqM) Est GFR (CKD-EPI)NonAf >90 (>60 ml/min/1.73 sqM) Glucose 96 (74-99) mg/dL Plasma Lactic Acid Cristino 1.0 (0.7-2.0) mmol/L Calcium 9.6 (8.4-10.2) mg/dL Total Bilirubin 0.4 (0.2-1.3) mg/dL AST 28 (14-36) U/L ALT 21 (4-34) U/L Alkaline Phosphatase 69 (38-126) U/L Total Protein 6.7 (6.3-8.2) g/dL Albumin 4.2 (3.5-5.0) g/dL Disposition Clinical Impression: Abdominal pain, History of abdominal abscess, S/P abdominoplasty Disposition: ADMITTED IP TO THIS [facility] Condition: Stable Referrals: Johnson Oquendo MD [Primary Care Provider] - 1-2 days
[2021-01-18 15:03] LABS: Basophils % (A) 1 %; Eosinophils # (A) 0.2 k/uL (0-0.7); Eosinophils % (A) 2 %; HCT 40.1 % (34.0-46.0); HGB 13.4 gm/dL (11.4-16.0); Lymphocytes # (A) 3.2 k/uL (1.0-4.8); Lymphocytes % (A) 35 %; MCH 28.4 pg (25.0-35.0); MCHC 33.5 g/dL (31.0-37.0); MCV 84.9 fL (80.0-100.0); Mean Platelet Volume 7.3; Monocytes # (A) 0.4 k/uL (0-1.0); Monocytes % (A) 4 %; Neutrophils # (A) 5.3 k/uL (1.3-7.7); Neutrophils % (A) 58 %; Platelet Count 316 k/uL (150-450); RBC 4.73 m/uL (3.80-5.40); RDW 14.2 % (11.5-15.5); WBC 9.2 k/uL (3.8-10.6)
[2021-01-18 15:12] LABS: ALT 21 U/L (4-34); AST 28 U/L (14-36); African American GFR (CKD) >90 (>60 ml/min/1.73 sqM); Albumin 4.2 g/dL (3.5-5.0); Alkaline Phosphatase 69 U/L (38-126); Anion Gap 6 mmol/L; Blood Urea Nitrogen 13 mg/dL (7-17); Calcium 9.6 mg/dL (8.4-10.2); Carbon Dioxide 27 mmol/L (22-30); Chloride 107 mmol/L (98-107); Glucose 96 mg/dL (74-99); Non-African American GFR(CKD) >90 (>60 ml/min/1.73 sqM); Potassium 3.7 mmol/L (3.5-5.1); Sodium 140 mmol/L (137-145); Total Bilirubin 0.4 mg/dL (0.2-1.3); Total Protein 6.7 g/dL (6.3-8.2)
--- NOTE | 2021-01-18 15:25 | CT ---
EXAMINATION TYPE: CT abdomen pelvis w con DATE OF EXAM: 01/18/2021 COMPARISON: Prior CT 10/12/2020 HISTORY: Mid Abdominal pain with history of abscess CT DLP: 1152.1 mGycm Automated exposure control for dose reduction was used. TECHNIQUE: Helical acquisition of images from the lung bases through the pelvis have been completed. CONTRAST: Performed without Oral Contrast and with IV Contrast, patient injected with 100 mL of Isovue 300. FINDINGS: Along anterior abdominal wall there is a prior fluid collection present in the subcutaneous fat which now is nearly completely resolved. There is some residual scarring, there is improvement i n the extensive inflammatory changes seen on prior exam subcutaneous fat anterior to the anterior abd ominal wall. LUNG BASES: No significant abnormality is appreciated. AORTA: No significant abnormality is appreciated. LIVER/GB: No significant interval change is appreciated, patient is post cholecystectomy. PANCREAS: No significant abnormality is seen. SPLEEN: No significant abnormality is seen. ADRENALS: No significant abnormality is seen. KIDNEYS: No significant abnormality is seen. REPRODUCTIVE ORGANS: No significant abnormality is seen BOWEL: Some questionable colonic wall thickening along the descending colon, sigmoid colon, axial im age #69. FREE AIR: No Free Air visible. ASCITES: None visible. PELVIC ADENOPATHY: None visualized. RETROPERITONEAL ADENOPATHY: No Retroperitoneal Adenopathy visible. URINARY BLADDER: No significant abnormality is seen. OSSEOUS STRUCTURES: No significant abnormality is seen. IMPRESSION: MARKED IMPROVEMENT IN THE SUBCUTANEOUS INFLAMMATORY CHANGE AND ABNORMAL FLUID COLLECTION COMPARED TO PRIOR EXAM. Difficult to exclude a component of colitis, although findings are likely due to lack of distention, correlate.
[2021-01-18] MEDS ORDERED: IBUPROFEN 400 MG TAB PO PRN (17:11)
[2021-01-18] MEDS ORDERED: KETOROLAC 15 MG/ML 1 ML VIAL IVP PRN (17:11)
[2021-01-18] MEDS ORDERED: NALOXONE 0.4 MG/ML 1 ML VIAL IV PRN (17:11)
[2021-01-18] MEDS ORDERED: ACETAMINOPHEN TAB 325 MG TAB PO PRN (17:11)
[2021-01-18] MEDS: HYDROcodone/APAP 5-325MG 1 EACH TAB PO PRN (23:05)
[2021-01-19] MEDS: HYDROcodone/APAP 5-325MG 1 EACH TAB PO PRN ×3 (08:33→17:13)
[2021-01-19 09:20] VITALS: RESP 16
--- NOTE | 2021-01-19 13:24 | P.GSHP ---
History of Present Illness H&P Date: 01/19/21 Patient seen. She has recurrent subcutaneous abdominal wall seroma from previous panniculectomy. She reports moderate severe pain. Computed tomography scan reviewed. We'll consult interventional radiology for drainage of abdominal wall seroma. Past Medical History Past Medical History: No Reported History Additional Past Medical History / Comment(s): GALLBLADDER DISORDER History of Any Multi-Drug Resistant Organisms: None Reported Past Surgical History: Adenoidectomy, Cholecystectomy, Tonsillectomy, Tubal Ligation Additional Past Surgical History / Comment(s): D & C, Tummy tuck Past Anesthesia/Blood Transfusion Reactions: No Reported Reaction Past Psychological History: No Psychological Hx Reported Smoking Status: Never smoker Past Alcohol Use History: None Reported Additional Past Alcohol Use History / Comment(s): SMOKES 1/2 PPD SINCE AGE 15 Past Drug Use History: None Reported - Past Family History Mother Family Medical History: No Reported History Father Family Medical History: Unable to Obtain Medications and Allergies Home Medications Medication Instructions Recorded Confirmed Type No Known Home Medications 01/18/21 01/18/21 History Allergies Allergy/AdvReac Type Severity Reaction Status Date / Time No Known Allergies Allergy Verified 01/18/21 14:53 Surgical - Exam Vital Signs Temp Pulse Resp BP Pulse Ox 98.1 F 110 H 18 141/73 97 01/18/21 13:22 01/18/21 13:22 01/18/21 13:22 01/18/21 13:22 01/18/21 13:22 Results - Labs 01/18/21 14:44 01/18/21 14:44 Diabetes panel 01/18/21 Range/Units 14:44 Sodium 140 (137-145) mmol/L Potassium 3.7 (3.5-5.1) mmol/L Chloride 107 (98-107) mmol/L Carbon Dioxide 27 (22-30) mmol/L BUN 13 (7-17) mg/dL Creatinine 0.62 (0.52-1.04) mg/dL Glucose 96 (74-99) mg/dL Calcium 9.6 (8.4-10.2) mg/dL AST 28 (14-36) U/L ALT 21 (4-34) U/L Alkaline Phosphatase 69 (38-126) U/L Total Protein 6.7 (6.3-8.2) g/dL Albumin 4.2 (3.5-5.0) g/dL Calcium panel 01/18/21 Range/Units 14:44 Calcium 9.6 (8.4-10.2) mg/dL Albumin 4.2 (3.5-5.0) g/dL Pituitary panel 01/18/21 Range/Units 14:44 Sodium 140 (137-145) mmol/L Potassium 3.7 (3.5-5.1) mmol/L Chloride 107 (98-107) mmol/L Carbon Dioxide 27 (22-30) mmol/L BUN 13 (7-17) mg/dL Creatinine 0.62 (0.52-1.04) mg/dL Glucose 96 (74-99) mg/dL Calcium 9.6 (8.4-10.2) mg/dL Adrenal panel 01/18/21 Range/Units 14:44 Sodium 140 (137-145) mmol/L Potassium 3.7 (3.5-5.1) mmol/L Chloride 107 (98-107) mmol/L Carbon Dioxide 27 (22-30) mmol/L BUN 13 (7-17) mg/dL Creatinine 0.62 (0.52-1.04) mg/dL Glucose 96 (74-99) mg/dL Calcium 9.6 (8.4-10.2) mg/dL Total Bilirubin 0.4 (0.2-1.3) mg/dL AST 28 (14-36) U/L ALT 21 (4-34) U/L Alkaline Phosphatase 69 (38-126) U/L Total Protein 6.7 (6.3-8.2) g/dL Albumin 4.2 (3.5-5.0) g/dL
[2021-01-19 14:34] VITALS: BP 102/66; PULSE 86; TEMP 98.2
--- NOTE | 2021-01-19 16:49 | US ---
EXAMINATION TYPE: US abdomen limited DATE OF EXAM: 01/19/2021 COMPARISON: CT from yesterday CLINICAL HISTORY: seroma/abscess. Post Tummy tuck 2019 last March with muscle repair, tummy tuck repai r August 2020. Patient stated has bloating feeling with abdominal wall bulge. At epigastric area post abdominal muscle repair a thin fluid area is seen = 2.7 x 1.2 x 0.4cm. At tummy tuck incision at midline pelvis a thin fluid area is seen = 4.7 x 3.9 x 0.4cm. IMPRESSION: As above. Two nonspecific small to tiny fluid collections corresponding to CT favor sero mas given thin wall and lack of vascularity.
--- NOTE | 2021-01-19 18:09 | P.DS ---
Providers Date of admission: 01/18/21 20:12 Expected date of discharge: 01/19/21 Attending physician: Geeta Patrick Primary care physician: Azra Ornelas [facility] Course: Patient had interventional radiology consultation for drainage of abdominal wall seroma. Fluid collection found to be too small to drain. Recommend wearing abdominal binder daily for up to 2 weeks. Hypertension low-carb diet advised. Follow-up as outpatient in 2 weeks. Patient Condition at Discharge: Good Plan - Discharge Summary Discharge Rx Participant: No New Discharge Prescriptions: New Acetaminophen Tab [Tylenol Tab] 1,000 mg PO Q6HR PRN #30 tablet PRN Reason: Pain Discharge Medication List Acetaminophen Tab [Tylenol Tab] 1,000 mg PO Q6HR PRN #30 tablet 01/19/21 [Rx] Follow up Appointment(s)/Referral(s): Johnson Oquendo MD [Primary Care Provider] - 1-2 days Geeta Patrick MD [STAFF PHYSICIAN] - 01/26/21 Patient Instructions/Handouts: Abdominal Binder (DC), Panniculectomy (GEN) Activity/Diet/Wound Care/Special Instructions: Wear abdominal binder at all times except showering. Recommend high-protein low-carb diet. Recommend carbohydrate less than 100 g daily. Recommend protein intake over 80 g daily. Discharge Disposition: HOME SELF-CARE
== END 2021-01-19 18:24 | disposition home or self-care (01) ==
LOC: EC 13:10 → 6PED 20:12
PROVIDERS: ADMIT Surgery Plastic and Reconstructive Surgery; ATTEND Surgery Plastic and Reconstructive Surgery
DX: L02.211 Cutaneous abscess of abdominal wall (principal); I10 Essential (primary) hypertension; K82.9 Disease of gallbladder, unspecified; Z20.822 Contact with and (suspected) exposure to COVID-19; Z98.51 Tubal ligation status; Z90.49 Acquired absence of other specified parts of digestive tract; Z87.891 Personal history of nicotine dependence; Z98.870 Personal history of in utero procedure during pregnancy
CPT/HCPCS: 96374; 99285; 36415; 80053; 83605; 85025; 87635; 76705; 74177; G0378 ×2; J1885; Q9967

== ENCOUNTER → 2021-01-26 | Outpatient (CLI) | payer OTHER ==
[2021-01-26 14:20] LABS: Basophils # (A) 0.06 X 10*3/uL (0.00-0.10); Basophils % (A) 0.6 %; Eosinophils # (A) 0.36 X 10*3/uL (0.04-0.35); Eosinophils % (A) 3.8 %; HCT 39.5 % (37.2-46.3); HGB 13.2 g/dL (12.0-15.0); Lymphocytes # (A) 2.89 X 10*3/uL (0.90-5.00); Lymphocytes % (A) 30.3 %; MCH 29.3 pg (27.0-32.0); MCHC 33.4 g/dL (32.0-37.0); MCV 87.8 fL (80.0-97.0); Mean Platelet Volume 9.5 fL (9.5-12.2); Monocytes # (A) 0.67 X 10*3/uL (0.20-1.00); Neutrophils # (A) 5.54 X 10*3/uL (1.80-7.70); Platelet Count 304 X 10*3/uL (140-440); RDW 12.9 % (11.5-14.5); WBC 9.55 X 10*3/uL (4.50-10.00)
[2021-01-26 14:22] LABS: HCT 45.4 % (37.2-46.3); MCH 27.3 pg (27.0-32.0); MCHC 30.8 g/dL (32.0-37.0); MCV 88.7 fL (80.0-97.0); Mean Platelet Volume 10.5 fL (9.5-12.2); Platelet Count 374 X 10*3/uL (140-440); RBC 5.12 X 10*6/uL (4.10-5.20); RDW 14.5 % (11.5-14.5); WBC 10.42 X 10*3/uL (4.50-10.00)
[2021-01-26 16:03] LABS: Hemoglobin A1C 5.4 % (4.0-6.0)
[2021-01-26 16:53] LABS: Erythrocyte Sedimentation Rate 30 mm/Hr (0-20)
[2021-01-26 22:01] LABS: African American GFR (CKD) 62.4 (60.0-200.0); BUN/Creat Ratio 15.38 Ratio (12.00-20.00); C Reactive Protein <0.4 mg/dL (0.0-0.8); Carbon Dioxide 24.9 mmol/L (21.6-31.8); Chloride 108 mmol/L (96-109); Glucose 142 mg/dL (70-110); Non-African American GFR(CKD) 53.9 (60.0-200.0); Potassium 5.3 mmol/L (3.5-5.5); Sodium 139 mmol/L (135-145)
[2021-01-26 22:12] LABS: % Iron Saturation 17.05 (12.00-45.00); African American GFR (CKD) 131.9 (60.0-200.0); Albumin 4.9 g/dL (3.80-4.90); Albumin/Globulin Ratio 2.23 (1.60-3.17); Anion Gap 8.1 mmol/L (4.00-12.00); BUN/Creat Ratio 18.57 Ratio (12.00-20.00); Calcium 9.7 mg/dL (8.7-10.3); Carbon Dioxide 22.9 mmol/L (21.6-31.8); Chol/HDL Ratio 4.24; Globulin 2.2 g/dL (1.6-3.3); LDL Cholesterol,Calculated 115.6 mg/dL (0.0-131.0); Non-African American GFR(CKD) 113.8 (60.0-200.0); Phosphorus 3.1 mg/dL (2.4-5.1); Potassium 4.8 mmol/L (3.5-5.5); Total Bilirubin 0.6 mg/dL (0.3-1.2); Total Protein 7.1 g/dL (6.2-8.2); VLDL Calculation 20.4 mg/dL (5.00-40.00)
[2021-01-26 22:37] LABS: Ferritin 13.4 ng/mL (10.0-291.0); Folate, Serum 11.4 ng/mL
[2021-01-26 23:59] LABS: INR 0.95 (0.90-1.11); Partial Thromboplastin Time 28.2 sec (23.5-31.0); Prothrombin Time 10.4 sec (9.9-11.9)
[2021-01-27 14:19] LABS: Zinc, Serum 67 ug/dL (60-130)
[2021-01-29 16:59] LABS: Selenium 98 mcg/L (63-160)
[2021-01-31 06:27] LABS: Vitamin A 39 ug/dL (38-106)
[2021-01-31 06:48] LABS: Vit B1(Thiamine) 63 ug/L (38-122)
== END | disposition home or self-care (01) ==
LOC: LABWHC1 10:20
PROVIDERS: ATTEND Surgery Plastic and Reconstructive Surgery
DX: E89.1 Postprocedural hypoinsulinemia (principal); D50.8 Other iron deficiency anemias; K90.89 Other intestinal malabsorption; E55.9 Vitamin D deficiency, unspecified; K74.1 Hepatic sclerosis; N19 Unspecified kidney failure; K50.90 Crohn's disease, unspecified, without complications; E21.1 Secondary hyperparathyroidism, not elsewhere classified; E66.01 Morbid (severe) obesity due to excess calories
CPT/HCPCS: 36415; 80048; 80053; 80061; 82306; 82525; 82607; 82728; 82746; 83036; 83540; 83550; 83735; 83970; 84100; 84134; 84255; 84425; 84443; 84590; 84630; 85025; 85027; 85610; 85652; 85730; 86140

== ENCOUNTER 2021-03-28 12:05 | Day surgery (SDC) | payer OTHER ==
[2021-03-28 13:04] VITALS: BP 128/78; PULSE 72; RESP 16; TEMP 98.6
--- NOTE | 2021-03-28 13:16 | US ---
ULTRASOUND GUIDED FNA OF SEROMA: CLINICAL HISTORY: Postsurgical seroma FINDINGS: Preliminary imaging demonstrated no evidence of seroma. IMPRESSION: 1. No evidence of seroma. Therefore procedure could not be performed.
== END 2021-03-28 12:50 | disposition home or self-care (01) ==
LOC: RADPROMAIN 12:05
PROVIDERS: ATTEND Surgery Plastic and Reconstructive Surgery
DX: T81.89XD Other complications of procedures, not elsewhere classified, subsequent encounter (principal)
CPT/HCPCS: 76536

== ENCOUNTER → 2021-06-28 | Outpatient (CLI) | payer OTHER | END | disposition home or self-care (01) | LOC: LABWHC1 14:58 | PROVIDERS: ATTEND Emergency Medicine | DX: Z11.59 Encounter for screening for other viral diseases (principal); Z20.828 Contact with and (suspected) exposure to other viral communicable diseases | CPT/HCPCS: 87635 ==

== ENCOUNTER → 2021-06-29 | Outpatient (CLI) | payer OTHER | END | disposition home or self-care (01) | LOC: LABWHC1 17:41 | PROVIDERS: ATTEND Emergency Medicine | DX: Z03.818 Encounter for observation for suspected exposure to other biological agents ruled out (principal); Z20.822 Contact with and (suspected) exposure to COVID-19 | CPT/HCPCS: 87635 ==